=== PATIENT | female | born 1990 | race Caucasian/White ===

== ENCOUNTER 2016-07-25 11:48 | Inpatient (IN) | payer OTHER ==
[2016-07-25 12:52] VITALS: BMI 23.3
--- NOTE | 2016-07-25 13:55 | HP ---
COWS - Scale Resting Pulse: 2= [place] 101-120 Sweatin= Chills/Flushing Restless Observation: 1= Difficult to Sit Still Pupil Size: 0= Normal to Room Light Bone or Joint Aches: 2= Severe Diffuse Aches Runny Nose/ Eye Tearin= Runny Nose/Eyes GI Upset > 30mins: 2= Nausea/Diarrhea Tremor Observation: 2= Slight Tremor Visible Yawning Observation: 2= >3x During Session Anxiety or Irritability: 2=Irritable/Anxious Goose Flesh Skin: 0=Smooth Skin COWS Score: 16 Admission ROS S - HPI Chief Complaint: "My life is unmanageable and I am tired of being a slave to this." Pt is here to Detox from Heroin. Allergies/Adverse Reactions: Allergies Allergy/AdvReac Type Severity Reaction Status Date / Time No Known Allergies Allergy Verified 07/25/16 13:04 History of Present Illness: Pt. is 25 YO female here to Detox from Heroin. Pt. has been to [facility] for Rehab in the past. Exam Limitations: No Limitations - Ebola screening Have you traveled outside of the country in the last 21 days: No Have you had contact with anyone from an Ebola affected area: No Have you been sick,other than usual withdrawal symptoms: No Do you have a fever: No - Review of Systems Constitutional: Chills, Diaphoresis, Fever, Loss of Appetite, Malaise, Night Sweats, Changes in sleep EENT: reports: Nose Congestion, Sinus Pressure Respiratory: reports: Shortness of Breath (Only when Detoxing.) Cardiac: reports: No Symptoms Reported GI: reports: Constipated, Nausea, Poor Appetite, Indigestion : reports: No Symptoms Reported Musculoskeletal: reports: Back Pain, Muscle Pain, Neck Pain Integumentary: reports: No Symptoms Reported Neuro: reports: Tremors Endocrine: reports: No Symptoms Reported Hematology: reports: Easy Bruising Psychiatric: reports: Judgement Intact, Mood/Affect Appropiate, Orientated x3, Anxious, Depressed Other Systems: Reviewed and Negative Patient History - Patient Medical History Hx Anemia: No Hx Asthma: No Hx Chronic Obstructive Pulmonary Disease (COPD): No Hx Cancer: No Hx Cardiac Disorders: Yes (VSD repair at age 4.) Hx Congestive Heart Failure: No Hx Hypertension: No Hx Hypercholesterolemia: No Hx Pacemaker: No HX Cerebrovascular Accident: No Hx Seizures: No Hx Dementia: No Hx Diabetes: Yes (NIDDM) Hx Gastrointestinal Disorders: No Hx Liver Disease: No Hx Genitourinary Disorders: No Hx Sexually Transmitted Disorders: No Hx Renal Disease (ESRD): No Hx Thyroid Disease: No Hx Human Immunodeficiency Virus (HIV): No (Last Tested: 2015: NEGATIVE.) Hx Hepatitis C: No (NEGATIVE HX.) Hx Depression: Yes (Takes med.) Hx Suicide Attempt: No (PATIENT DENIES CURRENT SI / HI.) Hx Bipolar Disorder: No Hx Schizophrenia: No - Patient Surgical History Past Surgical History: Yes Hx Neurologic Surgery: No Hx Cataract Extraction: No Hx Cardiac Surgery: Yes (REPAIR OF VSD AT AGE 4 YRS.) Hx Lung Surgery: No Hx Breast Surgery: No Hx Breast Biopsy: No Hx Abdominal Surgery: No Hx Appendectomy: No Hx Cholecystectomy: No Hx Genitourinary Surgery: No Hx Section: No Hx Orthopedic Surgery: No Hx Hysterectomy: No Anesthesia Reaction: No - PPD History Previous Implant?: Yes Documented Results: Negative w/o proof Implanted On Prior [facility] Admission?: Yes Date: 03/08/14 Results: 0 mm PPD to be Administered?: Yes - Reproductive History Patient is a Female of Child Bearing Age (11 -55 yrs old): Yes Last Menstrual Period: 07/24/16 Patient : No - Smoking Cessation Smoking history: Current every day smoker Have you smoked in the past 12 months: Yes Aproximately how many cigarettes per day: 10 Cigars Per Day: 0 Hx Chewing Tobacco Use: No Initiated information on smoking cessation: Yes 'Breaking Loose' booklet given: 07/25/16 (GIVEN ON UNIT.) - Substance & Tx. History Hx Alcohol Use: No Hx Substance Use: Yes Substance Use Type: Heroin Hx Substance Use Treatment: Yes (Rehab at [facility] and elsewhere in past.) - Substances Abused Heroin Route: Injection Frequency: Daily Amount used: 10-20 bags Age of first use: 19 Date of Last Use: 07/24/16 Family Disease History - Family Disease History Family Disease History: Heart Disease: Grandparent (Colon Ca; By-Pass Surgery.) , CA: Grandparent Admission Physical Exam BHS - Vital Signs Vital Signs: Vital Signs - 24 hr 07/25/16 12:48 Temperature 97.2 F L Pulse Rate 101 H Respiratory 18 Rate Blood Pressure 119/67 - Physical General Appearance: Yes: No Apparent Distress, Nourished, Appropriately Dressed , Tremorous HEENTM: Yes: Hearing grossly Normal, Normocephalic, Normal Voice, MARY, Pharynx Normal Respiratory: Yes: Chest Non-Tender, Lungs Clear, No Respiratory Distress Neck: Yes: No masses,lesions,Nodules, Supple, Trachea in good position Breast: Yes: Breast Exam Deferred Cardiology: Yes: Regular Rhythm, Regular Rate, S1, S2 Abdominal: Yes: Normal Bowel Sounds, Non Tender, Flat, Soft Genitourinary: Yes: Within Normal Limits Back: Yes: Normal Inspection Musculoskeletal: Yes: full range of Motion, Gait Steady Extremities: Yes: Normal Range of Motion, Non-Tender, Tremors Neurological: Yes: Fully Oriented, Alert, Normal Mood/Affect, Normal Response Integumentary: Yes: Normal Color, Warm, Track Cole (Dorsum of Bilateral hands. Redness and swelling noted at site on dorsum of Right hand. Pt. reports discomfort at site.) Lymphatic: Yes: Within Normal Limits - Diagnostic (1) Opioid dependence with withdrawal Current Visit: Yes Status: Acute (2) Nicotine dependence Current Visit: Yes Status: Chronic Qualifiers: Nicotine product type: cigarettes Substance use status: uncomplicated Qualified Code(s): F17.210 - Nicotine dependence, cigarettes, uncomplicated (3) Tqh-prrvirf-ucsrbkxwk diabetes mellitus without complications Current Visit: Yes Status: Chronic Qualifiers: Diabetes mellitus in classroom tutor insulin use: without in classroom tutor use Qualified Code(s): E11.9 - Type 2 diabetes mellitus without complications (4) Abscess of right hand Current Visit: Yes Status: Acute Cleared for Admission [facility] - Detox or Rehab [facility] Level of Care: Medically Managed Detox Regimen/Protocol: Methadone [facility] Breath Alcohol Content Breath Alcohol Content: 0 Urine Pregancy Test - Result Urine Test Results: Negative- NO Line Present Urine Drug Screen - Results Drug Screen Negative: No Urine Drug Screen Results: OPI-Opiates, OXY-Oxycodone
[2016-07-25] MEDS ORDERED: LOPERAMIDE HCL 2 MG CAPSULE PO PRN (14:34)
[2016-07-25] MEDS ORDERED: MAGNESIUM CITRATE 300 ML BOTTLE PO PRN (14:34)
[2016-07-25] MEDS ORDERED: P-EPHED 60MG/TRIPROLIDI 2.5MG TABLET PO PRN (14:34)
[2016-07-25] MEDS ORDERED: MAG HYDROX/AL HYDROX/SIMETH 30 ML UNIT-DOSE CUP PO PRN (14:34)
[2016-07-25] MEDS ORDERED: NICOTINE POLACRILEX 2 MG GUM BUC PRN (14:34)
[2016-07-25] MEDS ORDERED: hydrOXYzine PAMOATE 50 MG CAPSULE (FP) PO PRN (14:34)
[2016-07-25] MEDS ORDERED: guaiFENesin/D-METHORPHAN HB 10 ML UNIT-DOSE CUPS PO PRN (14:34)
[2016-07-25] MEDS ORDERED: METHADONE HCL 10 MG TABLET (FOR DETOX USE ONLY) PO ONE ×2 (14:34→23:00)
[2016-07-25] MEDS ORDERED: MAGNESIUM HYDROX 2400MG/30ML ORAL SUSPENSION 30 ML CUP PO PRN (14:34)
[2016-07-25] MEDS ORDERED: ACETAMINOPHEN 325 MG TABLET (FP) PO PRN (14:34)
[2016-07-25] MEDS ORDERED: IBUPROFEN 400 MG TABLET (FP) PO PRN (14:34)
[2016-07-25] MEDS ORDERED: MENTHOL/PHENOL 1 EACH UD MM PRN (14:34)
[2016-07-25] MEDS: NICOTINE 21 MG/24 HOURS TOPICAL PATCH TD SCH (15:08)
[2016-07-25] MEDS: diazePAM 5 MG TABLET PO PRN ×2 (15:09→22:33)
[2016-07-25 17:46] LABS: URINE APPEARANCE CLEAR; URINE BILIRUBIN NEGATIVE (NEGATIVE); URINE BLOOD NEGATIVE (NEGATIVE); URINE COLOR YELLOW; URINE GLUCOSE (UA) NEGATIVE (NEGATIVE); URINE KETONE NEGATIVE (NEGATIVE); URINE LEUK ESTERASE NEGATIVE (NEGATIVE); URINE NITRITE NEGATIVE (NEGATIVE); URINE PROTEIN NEGATIVE (NEGATIVE); URINE UROBILINOGEN NEGATIVE E.U./dl (0.2-1.0)
--- NOTE | 2016-07-25 18:09 | EKG ---
Test Reason : Blood Pressure : / mmHG Vent. Rate : 096 BPM Atrial Rate : 096 BPM P-R Int : 186 ms QRS Dur : 124 ms QT Int : 388 ms P-R-T Axes : 051 -70 079 degrees QTc Int : 490 ms NORMAL SINUS RHYTHM LEFT ATRIAL ENLARGEMENT LEFT AXIS DEVIATION RIGHT BUNDLE BRANCH BLOCK MARKED ST ABNORMALITY, POSSIBLE LATERAL SUBENDOCARDIAL INJURY ABNORMAL ECG WHEN COMPARED WITH ECG OF 25-JUL-2016 14:53, FUSION COMPLEXES ARE NO LONGER PRESENT PREMATURE VENTRICULAR COMPLEXES ARE NO LONGER PRESENT T WAVE INVERSION MORE EVIDENT IN LATERAL LEADS Confirmed by OLLIE MONTILLA MD ([id number]) on 07/25/2016 6:09:04 PM Referred By: Confirmed By:OLLIE MONTILLA MD
[2016-07-25] MEDS: BACITRACIN 30 GM TUBE TOPICAL OINTMENT TP SCH (22:32)
[2016-07-25] MEDS: diphenhydrAMINE HCL 50 MG CAPSULE PO PRN (22:33)
[2016-07-25] MEDS: SULFAMETHOXAZOLE/TRIMETHOPRIM 800MG/160MG D.S. TABLET PO SCH (22:33)
[2016-07-25] MEDS: THIAMINE HCL 100 MG TABLET (FP) PO SCH (22:41)
[2016-07-26] MEDS: diazePAM 5 MG TABLET PO PRN ×3 (06:13→22:18)
--- NOTE | 2016-07-26 07:46 | CONSULT ---
[facility] Psychiatric Consult - Data Date of interview: 07/26/16 Admission source: [facility] Identifying data: This is 25 years old femalewith no psychiatric hospitalization history iontoxicated with: Depression and Anxiety Substance Abuse History: - Smoking Cessation. Smoking history: Current every day smoker. Have you smoked in the past 12 months: Yes. Aproximately how many cigarettes per day: 10. Cigars Per Day: 0. Hx Chewing Tobacco Use: No. Initiated information on smoking cessation: Yes. 'Breaking Loose' booklet given : 07/25/16 (GIVEN ON UNIT.). - Substance & Tx. History. Hx Alcohol Use: No. Hx Substance Use: Yes. Substance Use Type: Heroin. Hx Substance Use Treatment : Yes (Rehab at [facility] and elsewhere in past.). - Substances Abused. Heroin. Route: Injection. Frequency: Daily. Amount used: 10-20 bags. Age of first use: 19. Date of Last Use: 07/24/16 Medical History: DM-2, Hypercholesterolemia history Psychiatric History: Patient reports history of depression and anxiety, reports historty of pesonality disorder, reports tyaking prior to admission: Effexor XR 150MG POQD, 75MG POQD Physical/Sexual Abuse/Trauma History: Denies Additional Comment: Effexor XR 150MG POQD, 75MG POQD Mental Status Exam - Mental Status Exam Alert and Oriented to: Person Cognitive Function: Fair Patient Appearance: Unkempt Mood: Sad Affect: Flat Patient Behavior: Sedated Speech Pattern: Delayed Voice Loudness: Mildly Soft/Quiet Thought Process: Circumstantial Thought Disorder: Being Controlled Hallucinations: Denies Suicidal Ideation: Denies Homicidal Ideation: Denies Insight/Judgement: Fair Sleep: Difficulty falling asleep Appetite: Weight loss Muscle strength/Tone: Mild Hypotonicity Gait/Station: Shuffling Additional Comments: Effexor XR 150MG POQD, 75MG POQD Psychiatric Findings - Problem List ([place] 1, 2,3) (1) Opioid dependence with withdrawal Current Visit: Yes Status: Acute (2) Nicotine dependence Current Visit: Yes Status: Chronic Qualifiers: Nicotine product type: cigarettes Substance use status: uncomplicated Qualified Code(s): F17.210 - Nicotine dependence, cigarettes, uncomplicated (3) Cannabis abuse Current Visit: No Status: Acute (4) Heroin dependence Current Visit: No Status: Acute (5) Personality disorder Current Visit: No Status: Acute (6) Substance induced mood disorder Current Visit: No Status: Acute (7) Drug-induced mood disorder Current Visit: Yes Status: Acute - Initial Treatment Plan Initial Treatment Plan: Effexor XR 150MG POQD, 75MG POQD
[2016-07-26] MEDS ORDERED: VENLAFAXINE HCL 150 MG E.R. CAPSULE PO SCH (10:00)
[2016-07-26] MEDS ORDERED: METHADONE HCL 10 MG TABLET (FOR DETOX USE ONLY) PO ONE (10:00)
[2016-07-26 10:07] LABS: MCH 28.8 pg (25.7-33.7); MCHC 33.5 g/dl (32.0-36.0); MEAN PLT VOLUME 9.8 fl (7.5-11.1); PLATELET COUNT 161 K/MM3 (134-434); RDW 15.7 % (11.6-15.6); WHITE BLOOD COUNT 5.9 K/mm3 (4.0-10.0)
[2016-07-26] MEDS: BACITRACIN 30 GM TUBE TOPICAL OINTMENT TP SCH ×2 (10:10→22:18)
[2016-07-26] MEDS: glipiZIDE 10 MG TABLET (FP) PO SCH (10:10)
[2016-07-26] MEDS: SULFAMETHOXAZOLE/TRIMETHOPRIM 800MG/160MG D.S. TABLET PO SCH ×2 (10:10→22:18)
[2016-07-26] MEDS: PRENATAL VITAMINS W/ FOLIC ACID TABLET (FP) PO SCH (10:10)
[2016-07-26] MEDS: VENLAFAXINE HCL 75 MG E.R. CAPSULES (FP) PO SCH (10:10)
[2016-07-26] MEDS: NICOTINE 21 MG/24 HOURS TOPICAL PATCH TD SCH (10:12)
[2016-07-26 10:22] LABS: ALBUMIN 3.5 g/dl (3.4-5.0); ALK PHOS 83 U/L (45-117); ANION GAP 5 (8-16); BILIRUBIN,TOTAL 0.3 mg/dL (0.2-1.0); CALCIUM 8.7 mg/dL (8.5-10.1); CO2 33 mmol/L (21-32); CREATININE 0.7 mg/dL (0.55-1.02); GLUCOSE,RANDOM 80 mg/dL (74-106); SGOT/AST 20 U/L (15-37); SGPT/ALT 21 U/L (12-78); TOT PROT 6.9 g/dl (6.4-8.2)
--- NOTE | 2016-07-26 11:02 | PN ---
BHS COWS - Scale Resting Pulse: 2= [place] 101-120 Sweatin=Flushed/Facial Moisture Restless Observation: 1= Difficult to Sit Still Pupil Size: 0= Normal to Room Light Bone or Joint Aches: 2= Severe Diffuse Aches Runny Nose/ Eye Tearin= Nasal Congestion GI Upset > 30mins: 0= None Tremor Observation of Outstretched Hands: 2= Slight Tremor Visible Yawning Observation: 2= >3x During Session Anxiety or Irritability: 1=Feels Anxious/Irritable Goose Flesh Skin: 3=Piloerection COWS Score: 16 BHS Progress Note (SOAP) Subjective: agitation sweats chills sweats interrupted sleep Objective: 07/26/16 11:01 Vital Signs Temperature 98.1 F 07/26/16 10:23 Pulse Rate 109 H 07/26/16 10:23 Respiratory Rate 18 07/26/16 10:23 Blood Pressure 111/61 07/26/16 10:23 O2 Sat by Pulse Oximetry (%) Laboratory Tests 07/25/16 07/25/16 07/25/16 13:18 13:24 16:35 WBC RBC Hgb Hct MCV MCHC RDW Plt Count MPV Sodium Potassium Chloride Carbon Dioxide Anion Gap BUN Creatinine Creat Clearance w eGFR POC Glucometer 153 93 Random Glucose Calcium Total Bilirubin AST ALT Alkaline Phosphatase Total Protein Albumin Urine Color Yellow Urine Appearance Clear Urine pH 5.0 Ur Specific [place] 1.017 Urine Protein Negative Urine Glucose (UA) Negative Urine Ketones Negative Urine Blood Negative Urine Nitrite Negative Urine Bilirubin Negative Urine Urobilinogen Negative Ur Leukocyte Esterase Negative RPR Titer 07/26/16 07/26/16 07/26/16 07:00 07:00 07:00 WBC 5.9 RBC 4.42 Hgb 12.7 D Hct 38.0 D MCV 86.0 MCHC 33.5 RDW 15.7 H Plt Count 161 MPV 9.8 D Sodium 139 Potassium 4.1 Chloride 101 Carbon Dioxide 33 H D Anion Gap 5 L BUN 6 L D Creatinine 0.7 D Creat Clearance w eGFR > 60 POC Glucometer Random Glucose 80 Calcium 8.7 Total Bilirubin 0.3 D AST 20 ALT 21 D Alkaline Phosphatase 83 D Total Protein 6.9 Albumin 3.5 Urine Color Urine Appearance Urine pH Ur Specific [place] Urine Protein Urine Glucose (UA) Urine Ketones Urine Blood Urine Nitrite Urine Bilirubin Urine Urobilinogen Ur Leukocyte Esterase RPR Titer Nonreactive 07/26/16 07:09 WBC RBC Hgb Hct MCV MCHC RDW Plt Count MPV Sodium Potassium Chloride Carbon Dioxide Anion Gap BUN Creatinine Creat Clearance w eGFR POC Glucometer 87 Random Glucose Calcium Total Bilirubin AST ALT Alkaline Phosphatase Total Protein Albumin Urine Color Urine Appearance Urine pH Ur Specific [place] Urine Protein Urine Glucose (UA) Urine Ketones Urine Blood Urine Nitrite Urine Bilirubin Urine Urobilinogen Ur Leukocyte Esterase RPR Titer awake/alert lying in bed no acute distress Assessment: 07/26/16 11:01 withdrawal sx Plan: continue detox
[2016-07-26] MEDS: THIAMINE HCL 100 MG TABLET (FP) PO SCH (22:17)
[2016-07-26] MEDS: diphenhydrAMINE HCL 50 MG CAPSULE PO PRN (22:18)
[2016-07-27] MEDS: glipiZIDE 10 MG TABLET (FP) PO SCH (07:44)
--- NOTE | 2016-07-27 09:52 | PN ---
BHS COWS - Scale Resting Pulse: 2= [place] 101-120 Sweatin=Flushed/Facial Moisture Restless Observation: 1= Difficult to Sit Still Pupil Size: 1= Pupils >than Normal Bone or Joint Aches: 2= Severe Diffuse Aches Runny Nose/ Eye Tearin= Nasal Congestion GI Upset > 30mins: 1= Stomach Cramp Tremor Observation of Outstretched Hands: 1= Tremor [place], Not Seen Yawning Observation: 0= None Anxiety or Irritability: 2=Irritable/Anxious Goose Flesh Skin: 0=Smooth Skin COWS Score: 13 BHS Progress Note (SOAP) Subjective: interrupted sleep, sweats, lbp Objective: 07/27/16 09:51 Vital Signs Temperature 98 F 07/27/16 06:34 Pulse Rate 91 H 07/27/16 06:34 Respiratory Rate 20 07/27/16 06:34 Blood Pressure 98/65 07/27/16 06:34 O2 Sat by Pulse Oximetry (%) Laboratory Tests 07/25/16 07/25/16 07/25/16 13:18 13:24 16:35 WBC RBC Hgb Hct MCV MCHC RDW Plt Count MPV Sodium Potassium Chloride Carbon Dioxide Anion Gap BUN Creatinine Creat Clearance w eGFR POC Glucometer 153 93 Random Glucose Calcium Total Bilirubin AST ALT Alkaline Phosphatase Total Protein Albumin Urine Color Yellow Urine Appearance Clear Urine pH 5.0 Ur Specific [place] 1.017 Urine Protein Negative Urine Glucose (UA) Negative Urine Ketones Negative Urine Blood Negative Urine Nitrite Negative Urine Bilirubin Negative Urine Urobilinogen Negative Ur Leukocyte Esterase Negative RPR Titer 07/26/16 07/26/16 07/26/16 07:00 07:00 07:00 WBC 5.9 RBC 4.42 Hgb 12.7 D Hct 38.0 D MCV 86.0 MCHC 33.5 RDW 15.7 H Plt Count 161 MPV 9.8 D Sodium 139 Potassium 4.1 Chloride 101 Carbon Dioxide 33 H D Anion Gap 5 L BUN 6 L D Creatinine 0.7 D Creat Clearance w eGFR > 60 POC Glucometer Random Glucose 80 Calcium 8.7 Total Bilirubin 0.3 D AST 20 ALT 21 D Alkaline Phosphatase 83 D Total Protein 6.9 Albumin 3.5 Urine Color Urine Appearance Urine pH Ur Specific [place] Urine Protein Urine Glucose (UA) Urine Ketones Urine Blood Urine Nitrite Urine Bilirubin Urine Urobilinogen Ur Leukocyte Esterase RPR Titer Nonreactive 07/26/16 07/26/16 07/27/16 07:09 16:29 05:32 WBC RBC Hgb Hct MCV MCHC RDW Plt Count MPV Sodium Potassium Chloride Carbon Dioxide Anion Gap BUN Creatinine Creat Clearance w eGFR POC Glucometer 87 70 89 Random Glucose Calcium Total Bilirubin AST ALT Alkaline Phosphatase Total Protein Albumin Urine Color Urine Appearance Urine pH Ur Specific [place] Urine Protein Urine Glucose (UA) Urine Ketones Urine Blood Urine Nitrite Urine Bilirubin Urine Urobilinogen Ur Leukocyte Esterase RPR Titer 07/27/16 11:20 pt aox3 in nad ambulating Assessment: 07/27/16 09:52 withdrawl sx;s 07/27/16 11:20 lbp Plan: cont. detox increase fluids motrin prn flexeril 10mgtid/prn
[2016-07-27] MEDS ORDERED: METHADONE HCL 5 MG TABLET (FOR DETOX USE ONLY) PO ONE (10:00)
[2016-07-27] MEDS: diazePAM 5 MG TABLET PO PRN ×2 (10:21→22:14)
[2016-07-27] MEDS: PRENATAL VITAMINS W/ FOLIC ACID TABLET (FP) PO SCH (10:21)
[2016-07-27] MEDS: SULFAMETHOXAZOLE/TRIMETHOPRIM 800MG/160MG D.S. TABLET PO SCH ×2 (10:21→22:14)
[2016-07-27] MEDS: NICOTINE 21 MG/24 HOURS TOPICAL PATCH TD SCH (10:21)
[2016-07-27] MEDS: VENLAFAXINE HCL 75 MG E.R. CAPSULES (FP) PO SCH (10:22)
[2016-07-27] MEDS: BACITRACIN 30 GM TUBE TOPICAL OINTMENT TP SCH ×2 (10:23→22:50)
[2016-07-27] MEDS: CYCLOBENZAPRINE HCL 10 MG TABLET (FP) PO PRN ×2 (11:44→22:14)
[2016-07-27] MEDS: THIAMINE HCL 100 MG TABLET (FP) PO SCH (22:14)
[2016-07-28] MEDS: diazePAM 5 MG TABLET PO PRN (06:07)
[2016-07-28] MEDS: glipiZIDE 10 MG TABLET (FP) PO SCH (06:49)
[2016-07-28] MEDS ORDERED: METHADONE HCL 5 MG TABLET (FOR DETOX USE ONLY) PO ONE (10:00)
[2016-07-28] MEDS: VENLAFAXINE HCL 75 MG E.R. CAPSULES (FP) PO SCH (10:07)
[2016-07-28] MEDS: PRENATAL VITAMINS W/ FOLIC ACID TABLET (FP) PO SCH (10:07)
[2016-07-28] MEDS: SULFAMETHOXAZOLE/TRIMETHOPRIM 800MG/160MG D.S. TABLET PO SCH ×2 (10:07→22:26)
[2016-07-28] MEDS: NICOTINE 21 MG/24 HOURS TOPICAL PATCH TD SCH (10:08)
[2016-07-28] MEDS: BACITRACIN 30 GM TUBE TOPICAL OINTMENT TP SCH ×2 (10:08→22:27)
--- NOTE | 2016-07-28 11:10 | PN ---
BHS Progress Note (SOAP) Subjective: back pain sweats chills interrupted sleep Objective: 07/28/16 11:08 Vital Signs Temperature 98.4 F 07/28/16 10:20 Pulse Rate 101 H 07/28/16 10:20 Respiratory Rate 16 07/28/16 10:20 Blood Pressure 111/57 07/28/16 10:20 O2 Sat by Pulse Oximetry (%) awake/alert ambulating no acute distress Assessment: 07/28/16 11:09 withdrawal sx Plan: continue detox increase fluids lidocaine patch
[2016-07-28] MEDS: LIDOCAINE 5% TOPICAL PATCH TP SCH (11:33)
[2016-07-28] MEDS: CYCLOBENZAPRINE HCL 10 MG TABLET (FP) PO PRN (22:26)
[2016-07-28] MEDS: THIAMINE HCL 100 MG TABLET (FP) PO SCH (22:26)
[2016-07-28] MEDS: diphenhydrAMINE HCL 50 MG CAPSULE PO PRN (22:26)
[2016-07-29] MEDS: glipiZIDE 10 MG TABLET (FP) PO SCH (07:25)
[2016-07-29] MEDS ORDERED: METHADONE HCL 10 MG TABLET (FOR DETOX USE ONLY) PO ONE (10:00)
[2016-07-29] MEDS: VENLAFAXINE HCL 75 MG E.R. CAPSULES (FP) PO SCH (10:29)
[2016-07-29] MEDS: SULFAMETHOXAZOLE/TRIMETHOPRIM 800MG/160MG D.S. TABLET PO SCH ×2 (10:30→22:52)
[2016-07-29] MEDS: BACITRACIN 30 GM TUBE TOPICAL OINTMENT TP SCH ×2 (10:31→22:52)
[2016-07-29] MEDS: LIDOCAINE 5% TOPICAL PATCH TP SCH (11:10)
[2016-07-29] MEDS: NICOTINE 21 MG/24 HOURS TOPICAL PATCH TD SCH (11:11)
[2016-07-29] MEDS: PRENATAL VITAMINS W/ FOLIC ACID TABLET (FP) PO SCH (11:12)
--- NOTE | 2016-07-29 12:28 | PN ---
S Progress Note (SOAP) Subjective: Fatigue, Restless Legs (last night only). Objective: PT. A & O X 3. 07/29/16 12:26 Vital Signs Temperature 96.3 F L 07/29/16 09:53 Pulse Rate 96 H 07/29/16 09:53 Respiratory Rate 16 07/29/16 09:53 Blood Pressure 112/57 07/29/16 09:53 O2 Sat by Pulse Oximetry (%) Laboratory Last Values WBC 5.9 K/mm3 (4.0-10.0) 07/26/16 07:00 RBC 4.42 M/mm3 (3.60-5.2) 07/26/16 07:00 Hgb 12.7 GM/dL (10.7-15.3) D 07/26/16 07:00 Hct 38.0 % (32.4-45.2) D 07/26/16 07:00 MCV 86.0 fl (80-96) 07/26/16 07:00 MCHC 33.5 g/dl (32.0-36.0) 07/26/16 07:00 RDW 15.7 % (11.6-15.6) H 07/26/16 07:00 Plt Count 161 K/MM3 (134-434) 07/26/16 07:00 MPV 9.8 fl (7.5-11.1) D 07/26/16 07:00 Sodium 139 mmol/L (136-145) 07/26/16 07:00 Potassium 4.1 mmol/L (3.5-5.1) 07/26/16 07:00 Chloride 101 mmol/L (98-107) 07/26/16 07:00 Carbon Dioxide 33 mmol/L (21-32) H D 07/26/16 07:00 Anion Gap 5 (8-16) L 07/26/16 07:00 BUN 6 mg/dL (7-18) L D 07/26/16 07:00 Creatinine 0.7 mg/dL (0.55-1.02) D 07/26/16 07:00 Creat Clearance w eGFR > 60 (>60) 07/26/16 07:00 POC Glucometer 120 UNITS (()) 07/29/16 06:00 Random Glucose 80 mg/dL (74-106) 07/26/16 07:00 Calcium 8.7 mg/dL (8.5-10.1) 07/26/16 07:00 Total Bilirubin 0.3 mg/dL (0.2-1.0) D 07/26/16 07:00 AST 20 U/L (15-37) 07/26/16 07:00 ALT 21 U/L (12-78) D 07/26/16 07:00 Alkaline Phosphatase 83 U/L (45-117) D 07/26/16 07:00 Total Protein 6.9 g/dl (6.4-8.2) 07/26/16 07:00 Albumin 3.5 g/dl (3.4-5.0) 07/26/16 07:00 Urine Color Yellow 07/25/16 13:24 Urine Appearance Clear 07/25/16 13:24 Urine pH 5.0 (5.0-8.0) 07/25/16 13:24 Ur Specific [place] 1.017 (1.001-1.035) 07/25/16 13:24 Urine Protein Negative (NEGATIVE) 07/25/16 13:24 Urine Glucose (UA) Negative (NEGATIVE) 07/25/16 13:24 Urine Ketones Negative (NEGATIVE) 07/25/16 13:24 Urine Blood Negative (NEGATIVE) 07/25/16 13:24 Urine Nitrite Negative (NEGATIVE) 07/25/16 13:24 Urine Bilirubin Negative (NEGATIVE) 07/25/16 13:24 Urine Urobilinogen Negative E.U./dl (0.2-1.0) 07/25/16 13:24 Ur Leukocyte Esterase Negative (NEGATIVE) 07/25/16 13:24 RPR Titer Nonreactive (NONREACTIVE) 07/26/16 07:00 LABS NOTED. Assessment: 07/29/16 12:27 WITHDRAWAL SYMPTOMS. Plan: CONTINUE DETOX. ADVISED PT. TO FOLLOW-UP WITH YOUTH SERVICES LIBRARIAN / REHAB MEDICAL PROVIDER AFTER DISCHARGE FROM DETOX FOR GENERAL MEDICAL ASSESSMENT AND ABNORMAL LAB VALUES.
[2016-07-29] MEDS: THIAMINE HCL 100 MG TABLET (FP) PO SCH (22:52)
[2016-07-30] MEDS ORDERED: METHADONE HCL 5 MG TABLET (FOR DETOX USE ONLY) PO ONE (06:00)
[2016-07-30] MEDS: glipiZIDE 10 MG TABLET (FP) PO SCH (06:03)
--- NOTE | 2016-07-30 08:57 | DS ---
[facility] Detox Discharge Summary Admission Date: 07/25/16 Discharge Date: 07/30/16 - History Present History: Cannabis Dependence, Opioid Dependence - Physical Exam Results Vital Signs: Vital Signs Temperature 97.3 F L 07/30/16 06:00 Pulse Rate 85 07/30/16 06:00 Respiratory Rate 16 07/30/16 06:00 Blood Pressure 97/58 07/30/16 06:00 O2 Sat by Pulse Oximetry (%) - Treatment Hospital Course: Detox Protocol Followed, Detoxed Safely, Responded well, Discharged Condition Good, Rehab Referral Accepted - Medication Discharge Medications: Ambulatory Orders Glipizide [Glucotrol -] 10 mg PO DAILY 05/03/16 Venlafaxine HCl [Effexor -] 225 mg PO DAILY 07/22/16 Venlafaxine HCl ER [Effexor Xr -] 75 mg PO DAILY #30 cap.er.24h 07/26/16 Venlafaxine HCl ER [Effexor Xr -] 150 mg PO DAILY #30 cap.er.24h 07/26/16 - Diagnosis (1) Abscess of right hand Current Visit: Yes Status: Acute (2) Drug-induced mood disorder Current Visit: Yes Status: Acute (3) Opioid dependence with withdrawal Current Visit: Yes Status: Chronic (4) Nicotine dependence Current Visit: Yes Status: Chronic Qualifiers: Nicotine product type: cigarettes Substance use status: uncomplicated Qualified Code(s): F17.210 - Nicotine dependence, cigarettes, uncomplicated (5) Dco-pbfwthk-cihhdhxfs diabetes mellitus without complications Current Visit: Yes Status: Chronic Qualifiers: Diabetes mellitus group home insulin use: without terminal clerk use Qualified Code(s): E11.9 - Type 2 diabetes mellitus without complications (6) Anxious depression Current Visit: No Status: Acute (7) Cannabis abuse Current Visit: No Status: Acute (8) Heroin dependence Current Visit: No Status: Acute (9) Personality disorder Current Visit: No Status: Acute (10) Substance induced mood disorder Current Visit: No Status: Acute (11) Type II diabetes mellitus Current Visit: Yes Status: Chronic Qualifiers: Diabetes mellitus complication status: without complication Diabetes mellitus group home insulin use: with terminal clerk use Qualified Code(s): E11.9 - Type 2 diabetes mellitus without complications; Z79.4 - nursing home ( current) use of insulin - AMA Did Patient Leave Against Medical Advice: No
[2016-07-30 10:16] VITALS: BP 104/59; PULSE 99; TEMP 96.1
[2016-07-30] MEDS: PRENATAL VITAMINS W/ FOLIC ACID TABLET (FP) PO SCH (10:31)
[2016-07-30] MEDS: SULFAMETHOXAZOLE/TRIMETHOPRIM 800MG/160MG D.S. TABLET PO SCH (10:31)
[2016-07-30] MEDS: VENLAFAXINE HCL 75 MG E.R. CAPSULES (FP) PO SCH (10:31)
[2016-07-30] MEDS: BACITRACIN 30 GM TUBE TOPICAL OINTMENT TP SCH (10:33)
[2016-07-30] MEDS: LIDOCAINE 5% TOPICAL PATCH TP SCH (10:33)
[2016-07-30] MEDS: NICOTINE 21 MG/24 HOURS TOPICAL PATCH TD SCH (10:33)
== END 2016-07-30 11:20 | disposition home or self-care (01) | DRG 773 ==
LOC: YASAS 11:48 → Y6N 13:29
PROVIDERS: ADMIT Internal Medicine; ATTEND Internal Medicine
PROC: HZ2ZZZZ Detoxification Services for Substance Abuse Treatment (ICD-10-PCS; principal; 2016-07-30)
DX: F11.23 Opioid dependence with withdrawal (principal); F17.210 Nicotine dependence, cigarettes, uncomplicated; E11.9 Type 2 diabetes mellitus without complications; Z79.84 Long term (current) use of oral hypoglycemic drugs; L02.511 Cutaneous abscess of right hand
CPT/HCPCS: 36415; 80053; 81003; 85027; 86593; 93005; 93010

== ENCOUNTER 2016-10-04 12:54 | Inpatient (IN) | payer OTHER ==
[2016-10-04 13:32] VITALS: BMI 24.7
--- NOTE | 2016-10-04 15:09 | HP ---
COWS - Scale Resting Pulse: 2= [place] 101-120 Sweatin= Chills/Flushing Restless Observation: 3= Extraneous Movement Pupil Size: 2= Moderately Dilated Bone or Joint Aches: 4=Acute Joint/Muscle Pain Runny Nose/ Eye Tearin= None GI Upset > 30mins: 0= None Tremor Observation: 1= Tremor [place], Not Seen Yawning Observation: 1= 1-2x During Session Anxiety or Irritability: 1=Feels Anxious/Irritable Goose Flesh Skin: 0=Smooth Skin COWS Score: 15 Admission ROS BHS - HPI Chief Complaint: DETOX TX FOR HEROIN DEPENDENCE Allergies/Adverse Reactions: Allergies Allergy/AdvReac Type Severity Reaction Status Date / Time No Known Allergies Allergy Verified 10/04/16 13:32 History of Present Illness: 26 Y/O [facility]/FEMALE WITH A HX OF HEROIN DEPENDENCE SEEKING DETOX TX Exam Limitations: No Limitations - Ebola screening Have you traveled outside of the country in the last 21 days: No Have you had contact with anyone from an Ebola affected area: No Have you been sick,other than usual withdrawal symptoms: No Do you have a fever: No - Review of Systems Constitutional: Chills, Night Sweats, Changes in sleep EENT: reports: Tearing, Nose Congestion Respiratory: reports: No Symptoms reported Cardiac: reports: No Symptoms Reported GI: reports: Constipated, Diarrhea, Nausea, Vomiting : reports: Dysuria (DUE TO DRUG USE) Musculoskeletal: reports: Back Pain, Joint Pain, Muscle Pain Integumentary: reports: Bruising (BOTH WRIST AREAS) Neuro: reports: Headache, Tremors Endocrine: reports: No Symptoms Reported Hematology: reports: Anemia Psychiatric: reports: Orientated x3, Anxious, Depressed Other Systems: Reviewed and Negative Patient History - Patient Medical History Hx Anemia: No Hx Asthma: No Hx Chronic Obstructive Pulmonary Disease (COPD): No Hx Cancer: No Hx Cardiac Disorders: Yes (VSD repair at age 4) Hx Congestive Heart Failure: No Hx Hypertension: No Hx Hypercholesterolemia: No Hx Pacemaker: No HX Cerebrovascular Accident: No Hx Seizures: No Hx Dementia: No Hx Diabetes: Yes (ON GLYPIZIDE) Hx Gastrointestinal Disorders: No Hx Liver Disease: No Hx Genitourinary Disorders: No Hx Sexually Transmitted Disorders: No Hx Renal Disease (ESRD): No Hx Thyroid Disease: No Hx Human Immunodeficiency Virus (HIV): No (Last Tested: 2015: NEGATIVE.) Hx Hepatitis C: No (NEGATIVE HX.) Hx Depression: Yes (ON EFFEXOR) Hx Suicide Attempt: No (DENIES) Hx Bipolar Disorder: No Hx Schizophrenia: No - Patient Surgical History Past Surgical History: Yes Hx Neurologic Surgery: No Hx Cataract Extraction: No Hx Cardiac Surgery: No (REPAIR OF VSD AT AGE 4 YRS.) Hx Lung Surgery: No Hx Breast Surgery: No Hx Breast Biopsy: No Hx Abdominal Surgery: No Hx Appendectomy: No Hx Cholecystectomy: No Hx Genitourinary Surgery: No Hx Section: No Hx Orthopedic Surgery: No Hx Hysterectomy: No Anesthesia Reaction: No - PPD History Previous Implant?: Yes Documented Results: Negative w/proof Implanted On Prior [facility] Admission?: Yes Date: 07/27/16 Results: 0 mm PPD to be Administered?: No - Reproductive History Patient is a Female of Child Bearing Age (11 -55 yrs old): Yes Last Menstrual Period: 09/17/16 Patient : No - Smoking Cessation Smoking history: Current every day smoker Have you smoked in the past 12 months: Yes Aproximately how many cigarettes per day: 10 Cigars Per Day: 0 Hx Chewing Tobacco Use: No Initiated information on smoking cessation: Yes 'Breaking Loose' booklet given: 10/04/16 - Substance & Tx. History Hx Alcohol Use: No (DENIES) Hx Substance Use: Yes (HEROIN) Substance Use Type: Heroin Hx Substance Use Treatment: Yes ([facility]-DETOX) - Substances Abused Heroin Route: Injection Frequency: Daily Amount used: 5-10 bags Age of first use: 19 Date of Last Use: 10/04/16 Family Disease History - Family Disease History Family Disease History: Heart Disease: Grandparent (Colon Ca; By-Pass Surgery.) , Father, Mother, [place]: Grandparent Admission Physical Exam BHS - Vital Signs Vital Signs: Vital Signs - 24 hr 10/04/16 13:28 Temperature 97.9 F Pulse Rate 103 H Respiratory 18 Rate Blood Pressure 119/71 - Physical General Appearance: Yes: Moderate Distress, Irritable, Anxious HEENTM: Yes: EOMI, Normocephalic, MARY, Pharynx Normal Respiratory: Yes: Chest Non-Tender, Lungs Clear, Normal Breath Sounds, No Respiratory Distress Neck: Yes: Supple, Trachea in good position Breast: Yes: Breast Exam Deferred Cardiology: Yes: Regular Rhythm, S1, S2, Tachycardia Abdominal: Yes: Normal Bowel Sounds, Non Tender, Flat, Soft Genitourinary: Yes: Other (N/C) Back: Yes: Within Normal Limits Musculoskeletal: Yes: full range of Motion, Gait Steady Extremities: Yes: Normal Range of Motion, Non-Tender Neurological: Yes: chief unit forester II-XII NML intact, Fully Oriented, Alert Integumentary: Yes: Dry, Warm, Track Feng (IV TRACK FENG BOTH FOREARMS) Lymphatic: Yes: Within Normal Limits - Diagnostic (1) Nicotine dependence Current Visit: Yes Status: Acute Qualifiers: Nicotine product type: cigarettes Substance use status: in withdrawal Qualified Code(s): F17.213 - Nicotine dependence, cigarettes, with withdrawal (2) Opioid dependence with withdrawal Current Visit: Yes Status: Acute (3) Type II diabetes mellitus Current Visit: Yes Status: Chronic Qualifiers: Diabetes mellitus complication status: without complication Diabetes mellitus pathology teacher insulin use: with pathology teacher use Qualified Code(s): E11.9 - Type 2 diabetes mellitus without complications Cleared for Admission [facility] - Detox or Rehab [facility] Level of Care: Medically Managed Detox Regimen/Protocol: Methadone [facility] Breath Alcohol Content Breath Alcohol Content: 0 Urine Pregancy Test - Result Urine Test Results: Negative- NO Line Present Urine Drug Screen - Results Drug Screen Negative: No Urine Drug Screen Results: OPI-Opiates
[2016-10-04] MEDS ORDERED: MAGNESIUM CITRATE 300 ML BOTTLE PO PRN (15:19)
[2016-10-04] MEDS ORDERED: guaiFENesin/D-METHORPHAN HB 10 ML UNIT-DOSE CUPS PO PRN (15:19)
[2016-10-04] MEDS ORDERED: MAGNESIUM HYDROX 2400MG/30ML ORAL SUSPENSION 30 ML CUP PO PRN (15:19)
[2016-10-04] MEDS ORDERED: MENTHOL/PHENOL 1 EACH UD MM PRN (15:19)
[2016-10-04] MEDS ORDERED: IBUPROFEN 400 MG TABLET (FP) PO PRN (15:19)
[2016-10-04] MEDS ORDERED: ACETAMINOPHEN 325 MG TABLET (FP) PO PRN (15:19)
[2016-10-04] MEDS ORDERED: P-EPHED 60MG/TRIPROLIDI 2.5MG TABLET PO PRN (15:19)
[2016-10-04] MEDS ORDERED: LOPERAMIDE HCL 2 MG CAPSULE PO PRN (15:19)
[2016-10-04] MEDS ORDERED: MAG HYDROX/AL HYDROX/SIMETH 30 ML UNIT-DOSE CUP PO PRN (15:19)
[2016-10-04] MEDS ORDERED: hydrOXYzine PAMOATE 25 MG CAPSULE (FP) PO PRN (15:19)
[2016-10-04] MEDS ORDERED: METHADONE HCL 10 MG TABLET (FOR DETOX USE ONLY) PO ONE ×2 (15:24→23:00)
--- NOTE | 2016-10-04 17:54 | CONSULT ---
[facility] Psychiatric Consult - Data Date of interview: 10/04/16 Admission source: [facility] Identifying data: Readmission to [facility] for this 26 y/o female seeking detox treatment for heroin dependence.Patient is single without children ,domiciled,unemployed and supported by relatives. Substance Abuse History: - Smoking Cessation. Smoking history: Current every day smoker. Have you smoked in the past 12 months: Yes. Aproximately how many cigarettes per day: 10. Cigars Per Day: 0. Hx Chewing Tobacco Use: No. Initiated information on smoking cessation: Yes. 'Breaking Loose' booklet given : 10/04/16. - Substance & Tx. History. Hx Alcohol Use: No (DENIES). Hx Substance Use: Yes (HEROIN). Substance Use Type: Heroin. Hx Substance Use Treatment: Yes ([facility]-DETOX). - Substances Abused. Heroin. Route: Injection. Frequency: Daily. Amount used: 5-10 bags. Age of first use: 19. Date of Last Use: 10/04/16. Confirmed by patient. Medical History: Diabetes mellitus and history of heart surgery at age 4 ( correction of ventricular septal defect). Psychiatric History: No reported history of psychiatric hospitalizations.Diagnosed with MDD,Anxiety Disorder and PTSD.Patient is maintained on Effexor ER 225 mg/day.She endorses adequate adherence to medications.Reportedly took her dose this morning prior to coming to [facility].Ms Mackay gets her psychiatric outpatient services at the [facility] in [facility].She denies history of suicide attempts. Physical/Sexual Abuse/Trauma History: Patient declined to discuss this domain. Additional Comment: Urine Drug Screen Results: OPI-Opiates.Noted. Mental Status Exam - Mental Status Exam Alert and Oriented to: Time, Place, Person Cognitive Function: Good Patient Appearance: Well Groomed (left nostril is pierced and metallic ring going through) Mood: Hopeful, Euthymic Affect: Appropriate, Normal Range Patient Behavior: Fatigued, Appropriate, Cooperative Speech Pattern: Clear, Appropriate Voice Loudness: Normal Thought Process: Goal Oriented Thought Disorder: Not Present Hallucinations: Denies Suicidal Ideation: Denies Homicidal Ideation: Denies Insight/Judgement: Fair Sleep: Well (self-report) Appetite: Good Muscle strength/Tone: Normal Gait/Station: Normal Psychiatric Findings - Problem List ([place] 1, 2,3) (1) Opioid dependence with withdrawal Current Visit: Yes Status: Acute (2) Nicotine dependence Current Visit: Yes Status: Acute Qualifiers: Nicotine product type: cigarettes Substance use status: in withdrawal Qualified Code(s): F17.213 - Nicotine dependence, cigarettes, with withdrawal (3) Drug-induced mood disorder Current Visit: Yes Status: Acute (4) Post traumatic stress disorder (PTSD) Current Visit: Yes Status: Chronic Comment: Self-report. (5) Type II diabetes mellitus Current Visit: Yes Status: Chronic Qualifiers: Diabetes mellitus complication status: without complication Diabetes mellitus terminal operator insulin use: with terminal operator use Qualified Code(s): E11.9 - Type 2 diabetes mellitus without complications (6) [id number] diabetes mellitus without complications Current Visit: Yes Status: Chronic Qualifiers: Diabetes mellitus terminal operator insulin use: without snf use Qualified Code(s): E11.9 - Type 2 diabetes mellitus without complications - Initial Treatment Plan Initial Treatment Plan: Psychoeducation.Detoxification.Effexor XR 225 mg po daily.Ordered.Side effects/benefits discussed with the patient.She is in agreement with this plan of care.Observation.Dose is verified via review of pharmacy claims : noted filled scripts for venalafaxine ER 75 mg/150 mg on @ [facility].NO scripts necessary at discharge.
[2016-10-04] MEDS ORDERED: METHADONE HCL 10 MG TABLET (FOR DETOX USE ONLY) ONE (17:59)
[2016-10-04] MEDS: diazePAM 5 MG TABLET PO PRN (18:00)
[2016-10-04 21:25] LABS: URINE APPEARANCE CLEAR; URINE BILIRUBIN NEGATIVE (NEGATIVE); URINE BLOOD NEGATIVE (NEGATIVE); URINE COLOR YELLOW; URINE GLUCOSE (UA) 3+ (NEGATIVE); URINE KETONE NEGATIVE (NEGATIVE); URINE LEUK ESTERASE NEGATIVE (NEGATIVE); URINE NITRITE NEGATIVE (NEGATIVE); URINE PROTEIN NEGATIVE (NEGATIVE); URINE UROBILINOGEN NEGATIVE E.U./dl (0.2-1.0)
[2016-10-04] MEDS: THIAMINE HCL 100 MG TABLET (FP) PO SCH (22:34)
[2016-10-05] MEDS: glipiZIDE 10 MG TABLET (FP) PO SCH (06:57)
[2016-10-05 09:45] LABS: MCH 29.1 pg (25.7-33.7); MCHC 32.6 g/dl (32.0-36.0); MEAN CELL VOLUME 89.1 fl (80-96); MEAN PLT VOLUME 11.7 fl (7.5-11.1); PLATELET COUNT 175 K/MM3 (134-434); WHITE BLOOD COUNT 5.6 K/mm3 (4.0-10.0)
[2016-10-05] MEDS ORDERED: METHADONE HCL 10 MG TABLET (FOR DETOX USE ONLY) PO ONE (10:00)
[2016-10-05] MEDS ORDERED: VENLAFAXINE HCL 150 MG E.R. CAPSULE PO SCH (10:00)
[2016-10-05 10:12] LABS: ALK PHOS 110 U/L (45-117); ANION GAP 11 (8-16); BILIRUBIN,TOTAL 0.7 mg/dL (0.2-1.0); CALCIUM 9.2 mg/dL (8.5-10.1); CO2 30 mmol/L (21-32); COCKROFT - GAULT 115.6595; CREATININE 0.7 mg/dL (0.55-1.02); GLUCOSE,RANDOM 240 mg/dL (74-106); SGOT/AST 18 U/L (15-37); SGPT/ALT 23 U/L (12-78); TOT PROT 7.7 g/dl (6.4-8.2)
[2016-10-05] MEDS: PRENATAL VITAMINS W/ FOLIC ACID TABLET (FP) PO SCH (10:31)
[2016-10-05] MEDS: VENLAFAXINE HCL 75 MG E.R. CAPSULES (FP) PO SCH (10:32)
[2016-10-05] MEDS: diazePAM 5 MG TABLET PO PRN ×2 (10:35→22:24)
--- NOTE | 2016-10-05 10:59 | PN ---
BHS COWS - Scale Resting Pulse: 2= [place] 101-120 Sweatin= Chills/Flushing Restless Observation: 1= Difficult to Sit Still Pupil Size: 0= Normal to Room Light Bone or Joint Aches: 2= Severe Diffuse Aches Runny Nose/ Eye Tearin= Runny Nose/Eyes GI Upset > 30mins: 0= None Tremor Observation of Outstretched Hands: 2= Slight Tremor Visible Yawning Observation: 1= 1-2x During Session Anxiety or Irritability: 2=Irritable/Anxious Goose Flesh Skin: 0=Smooth Skin COWS Score: 13 BHS Progress Note (SOAP) Subjective: sweats mild shakes interrupted sleep irritable Objective: 10/05/16 11:01 Vital Signs Temperature 98.2 F 10/05/16 10:59 Pulse Rate 105 H 10/05/16 10:59 Respiratory Rate 18 10/05/16 10:59 Blood Pressure 115/73 10/05/16 10:59 O2 Sat by Pulse Oximetry (%) Laboratory Tests 10/04/16 10/04/16 10/05/16 13:50 18:00 06:00 WBC 5.6 RBC 4.64 Hgb 13.5 Hct 41.3 MCV 89.1 MCHC 32.6 RDW 14.0 D Plt Count 175 MPV 11.7 H D Sodium Potassium Chloride Carbon Dioxide Anion Gap BUN Creatinine Creat Clearance w eGFR POC Glucometer 235 Random Glucose Calcium Total Bilirubin AST ALT Alkaline Phosphatase Total Protein Albumin Urine Color Yellow Urine Appearance Clear Urine pH 5.0 Urine Protein Negative Urine Glucose (UA) 3+ H Urine Ketones Negative Urine Blood Negative Urine Nitrite Negative Urine Bilirubin Negative Urine Urobilinogen Negative Ur Leukocyte Esterase Negative 10/05/16 10/05/16 06:00 06:47 WBC RBC Hgb Hct MCV MCHC RDW Plt Count MPV Sodium 136 Potassium 4.4 Chloride 95 L Carbon Dioxide 30 Anion Gap 11 BUN 9 D Creatinine 0.7 Creat Clearance w eGFR > 60 POC Glucometer 210 Random Glucose 240 H D Calcium 9.2 Total Bilirubin 0.7 D AST 18 ALT 23 Alkaline Phosphatase 110 D Total Protein 7.7 Albumin 4.0 Urine Color Urine Appearance Urine pH Urine Protein Urine Glucose (UA) Urine Ketones Urine Blood Urine Nitrite Urine Bilirubin Urine Urobilinogen Ur Leukocyte Esterase awake/alert ambulating no acute distress Assessment: 10/05/16 11:02 withdrawal sx Plan: continue detox increase fluids
--- NOTE | 2016-10-05 11:20 | EKG ---
Test Reason : Blood Pressure : / mmHG Vent. Rate : 096 BPM Atrial Rate : 096 BPM P-R Int : 194 ms QRS Dur : 128 ms QT Int : 382 ms P-R-T Axes : 051 -68 072 degrees QTc Int : 482 ms NORMAL SINUS RHYTHM LEFT ATRIAL ENLARGEMENT LEFT AXIS DEVIATION RIGHT BUNDLE BRANCH BLOCK T WAVE ABNORMALITY, CONSIDER LATERAL ISCHEMIA ABNORMAL ECG WHEN COMPARED WITH ECG OF 25-JUL-2016 14:54, NO SIGNIFICANT CHANGE WAS FOUND CLINICAL CORRELATION IS RECOMMENDED Confirmed by BREANNA GUSMAN MD ([id number]) on 10/05/2016 11:20:28 AM Referred By: Confirmed By:BREANNA GUSMAN MD
[2016-10-05] MEDS: THIAMINE HCL 100 MG TABLET (FP) PO SCH (22:16)
[2016-10-06] MEDS: glipiZIDE 10 MG TABLET (FP) PO SCH (07:45)
[2016-10-06] MEDS ORDERED: METHADONE HCL 5 MG TABLET (FOR DETOX USE ONLY) PO ONE (10:00)
[2016-10-06] MEDS: VENLAFAXINE HCL 75 MG E.R. CAPSULES (FP) PO SCH (10:31)
[2016-10-06] MEDS: PRENATAL VITAMINS W/ FOLIC ACID TABLET (FP) PO SCH (10:31)
[2016-10-06] MEDS: diazePAM 5 MG TABLET PO PRN (10:31)
--- NOTE | 2016-10-06 11:02 | PN ---
BHS COWS - Scale Resting Pulse: 0= [place] 80 or Below Sweatin= Chills/Flushing Restless Observation: 1= Difficult to Sit Still Pupil Size: 1= Pupils >than Normal Bone or Joint Aches: 1= Mild Discomfort Runny Nose/ Eye Tearin= Nasal Congestion GI Upset > 30mins: 1= Stomach Cramp Tremor Observation of Outstretched Hands: 1= Tremor [place], Not Seen Yawning Observation: 0= None Anxiety or Irritability: 1=Feels Anxious/Irritable Goose Flesh Skin: 0=Smooth Skin COWS Score: 8 BHS Progress Note (SOAP) Subjective: interrupted sleep, mild sweats Objective: 10/06/16 11:00 Vital Signs Temperature 97.9 F 10/06/16 10:44 Pulse Rate 92 H 10/06/16 10:44 Respiratory Rate 20 10/06/16 10:44 Blood Pressure 127/80 10/06/16 10:44 O2 Sat by Pulse Oximetry (%) Laboratory Tests 10/04/16 10/04/16 10/05/16 13:50 18:00 06:00 WBC 5.6 RBC 4.64 Hgb 13.5 Hct 41.3 MCV 89.1 MCHC 32.6 RDW 14.0 D Plt Count 175 MPV 11.7 H D Sodium Potassium Chloride Carbon Dioxide Anion Gap BUN Creatinine Creat Clearance w eGFR POC Glucometer 235 Random Glucose Calcium Total Bilirubin AST ALT Alkaline Phosphatase Total Protein Albumin Urine Color Yellow Urine Appearance Clear Urine pH 5.0 Ur Specific [place] 1.010 Urine Protein Negative Urine Glucose (UA) 3+ H Urine Ketones Negative Urine Blood Negative Urine Nitrite Negative Urine Bilirubin Negative Urine Urobilinogen Negative Ur Leukocyte Esterase Negative RPR Titer 10/05/16 10/05/16 10/05/16 06:00 06:00 06:47 WBC RBC Hgb Hct MCV MCHC RDW Plt Count MPV Sodium 136 Potassium 4.4 Chloride 95 L Carbon Dioxide 30 Anion Gap 11 BUN 9 D Creatinine 0.7 Creat Clearance w eGFR > 60 POC Glucometer 210 Random Glucose 240 H D Calcium 9.2 Total Bilirubin 0.7 D AST 18 ALT 23 Alkaline Phosphatase 110 D Total Protein 7.7 Albumin 4.0 Urine Color Urine Appearance Urine pH Ur Specific [place] Urine Protein Urine Glucose (UA) Urine Ketones Urine Blood Urine Nitrite Urine Bilirubin Urine Urobilinogen Ur Leukocyte Esterase RPR Titer Nonreactive 10/05/16 10/06/16 16:48 06:33 WBC RBC Hgb Hct MCV MCHC RDW Plt Count MPV Sodium Potassium Chloride Carbon Dioxide Anion Gap BUN Creatinine Creat Clearance w eGFR POC Glucometer 148 205 Random Glucose Calcium Total Bilirubin AST ALT Alkaline Phosphatase Total Protein Albumin Urine Color Urine Appearance Urine pH Ur Specific [place] Urine Protein Urine Glucose (UA) Urine Ketones Urine Blood Urine Nitrite Urine Bilirubin Urine Urobilinogen Ur Leukocyte Esterase RPR Titer pt aox3 in nad lying in bed comfortably Assessment: 10/06/16 11:01 withdrawal sx's 10/06/16 11:02 dm Plan: cont. detox increase fluids bgm and adjust as indicated
[2016-10-06] MEDS: diphenhydrAMINE HCL 50 MG CAPSULE PO PRN (22:18)
[2016-10-06] MEDS: THIAMINE HCL 100 MG TABLET (FP) PO SCH (22:18)
[2016-10-07] MEDS: glipiZIDE 10 MG TABLET (FP) PO SCH (06:41)
--- NOTE | 2016-10-07 09:29 | PN ---
S Progress Note (SOAP) Subjective: ALERT,IRRITABLE,ANXIOUS,INTERRUPTED SLEEP,PAIN IN THE BODY AND BACK Objective: 10/07/16 09:27 Vital Signs Temperature 97.7 F 10/07/16 06:50 Pulse Rate 70 10/07/16 06:50 Respiratory Rate 16 10/07/16 06:50 Blood Pressure 101/52 10/07/16 06:50 O2 Sat by Pulse Oximetry (%) Assessment: 10/07/16 09:28 WITHDRAWAL SYMPTOM Plan: CONTINUE DETOX,MEDICATION ADJUSTED,DISCHARGE IN AM
[2016-10-07] MEDS ORDERED: METHADONE HCL 5 MG TABLET (FOR DETOX USE ONLY) PO ONE (10:00)
[2016-10-07] MEDS ORDERED: METHADONE HCL 10 MG TABLET (FOR DETOX USE ONLY) PO ONE (10:00)
[2016-10-07] MEDS: diazePAM 5 MG TABLET PO PRN (10:25)
[2016-10-07] MEDS: PRENATAL VITAMINS W/ FOLIC ACID TABLET (FP) PO SCH (10:25)
[2016-10-07] MEDS: VENLAFAXINE HCL 75 MG E.R. CAPSULES (FP) PO SCH (10:25)
[2016-10-07] MEDS: THIAMINE HCL 100 MG TABLET (FP) PO SCH (22:06)
[2016-10-07] MEDS: diphenhydrAMINE HCL 50 MG CAPSULE PO PRN (22:06)
[2016-10-08] MEDS ORDERED: METHADONE HCL 5 MG TABLET (FOR DETOX USE ONLY) PO ONE (06:00)
[2016-10-08 06:24] VITALS: TEMP 97.7
[2016-10-08] MEDS: glipiZIDE 10 MG TABLET (FP) PO SCH (06:31)
--- NOTE | 2016-10-08 08:24 | PN ---
S Progress Note (SOAP) Subjective: ALERT,NO COMPLAINT Objective: 10/08/16 08:22 Vital Signs Temperature 97.7 F 10/08/16 06:00 Pulse Rate 73 10/08/16 06:00 Respiratory Rate 18 10/08/16 06:00 Blood Pressure 96/68 10/08/16 06:00 O2 Sat by Pulse Oximetry (%) Assessment: 10/08/16 08:23 DETOX COMPLETED,NO WITHDRAWAL SYMPTOM Plan: DISCHARGE TODAY,FOLLOW UP WITH AFTER CARE PROGRAM ARRANGEMENT
--- NOTE | 2016-10-08 08:24 | DS ---
[facility] Detox Discharge Summary Admission Date: 10/04/16 Discharge Date: 10/08/16 - History Present History: Opioid Dependence Additional Comments: FOLLOW UP WITH AFTER [facility] PROGRAM ARRANGEMENT AND PMD FOR MEDICAL PROBLEM Pertinent Past History: TYPE 2 DM NICOTINE DEPENDENCE - Physical Exam Results Vital Signs: Vital Signs Temperature 97.7 F 10/08/16 06:00 Pulse Rate 73 10/08/16 06:00 Respiratory Rate 18 10/08/16 06:00 Blood Pressure 96/68 10/08/16 06:00 O2 Sat by Pulse Oximetry (%) Pertinent Admission Physical Exam Findings: WITHDRAWAL SYMPTOM - Treatment Hospital Course: Detox Protocol Followed, Detoxed Safely, Responded well, Discharged Condition Good Patient has Accepted a Rehab Referral to: [facility] - Medication Discharge Medications: Ambulatory Orders Glipizide [Glucotrol -] 10 mg PO DAILY 05/03/16 Venlafaxine HCl [Effexor -] 225 mg PO DAILY 07/22/16 - Diagnosis (1) Nicotine dependence Current Visit: Yes Status: Acute Qualifiers: Nicotine product type: cigarettes Substance use status: in withdrawal Qualified Code(s): F17.213 - Nicotine dependence, cigarettes, with withdrawal (2) Opioid dependence with withdrawal Current Visit: Yes Status: Acute (3) Post traumatic stress disorder (PTSD) Current Visit: Yes Status: Chronic (4) Type II diabetes mellitus Current Visit: Yes Status: Chronic Qualifiers: Diabetes mellitus complication status: without complication Diabetes mellitus half-way insulin use: with 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
[2016-10-08] MEDS: PRENATAL VITAMINS W/ FOLIC ACID TABLET (FP) PO SCH (09:29)
[2016-10-08] MEDS: VENLAFAXINE HCL 75 MG E.R. CAPSULES (FP) PO SCH (09:29)
[2016-10-08] MEDS ORDERED: METHADONE HCL 10 MG TABLET (FOR DETOX USE ONLY) PO ONE (10:00)
[2016-10-08 10:42] VITALS: BP 108/67; PULSE 96
[2016-10-09] MEDS ORDERED: METHADONE HCL 5 MG TABLET (FOR DETOX USE ONLY) PO ONE (06:00)
== END 2016-10-08 10:02 | disposition home or self-care (01) | DRG 773 ==
LOC: YASAS 12:54 → Y6N 14:44
PROVIDERS: ADMIT Internal Medicine Addiction Medicine; ATTEND Internal Medicine Addiction Medicine
PROC: HZ2ZZZZ Detoxification Services for Substance Abuse Treatment (ICD-10-PCS; principal; 2016-10-08)
DX: F11.23 Opioid dependence with withdrawal (principal); F17.213 Nicotine dependence, cigarettes, with withdrawal; F43.10 Post-traumatic stress disorder, unspecified; F19.24 Other psychoactive substance dependence with psychoactive substance-induced mood disorder; F32.9 Major depressive disorder, single episode, unspecified; E11.9 Type 2 diabetes mellitus without complications; Z79.84 Long term (current) use of oral hypoglycemic drugs
CPT/HCPCS: 36415; 80053; 81003; 85027; 86593; 93005; 93010

== ENCOUNTER 2016-11-04 11:00 | Inpatient (IN) | payer OTHER ==
[2016-11-04 11:49] VITALS: BMI 24.7
--- NOTE | 2016-11-04 14:24 | HP ---
COWS - Scale Resting Pulse: 2= [place] 101-120 Sweatin= Chills/Flushing Restless Observation: 3= Extraneous Movement Pupil Size: 2= Moderately Dilated Bone or Joint Aches: 4=Acute Joint/Muscle Pain Runny Nose/ Eye Tearin= Runny Nose/Eyes GI Upset > 30mins: 1= Stomach Cramp (AND NAUSEA) Tremor Observation: 1= Tremor [place], Not Seen Yawning Observation: 1= 1-2x During Session Anxiety or Irritability: 1=Feels Anxious/Irritable Goose Flesh Skin: 0=Smooth Skin COWS Score: 18 Admission ROS S - HPI Chief Complaint: DETOX TX FOR HEROIN DEPENDENCE Allergies/Adverse Reactions: Allergies Allergy/AdvReac Type Severity Reaction Status Date / Time No Known Allergies Allergy Verified 11/04/16 12:37 History of Present Illness: 26 Y/O FEMALE WITH A HX OF HEROIN DEPENDENCE SEEKING DETOX TX Exam Limitations: No Limitations - Ebola screening Have you traveled outside of the country in the last 21 days: No Have you had contact with anyone from an Ebola affected area: No Have you been sick,other than usual withdrawal symptoms: No Do you have a fever: No - Review of Systems Constitutional: Chills, Loss of Appetite, Night Sweats, Changes in sleep EENT: reports: Tearing, Nose Congestion Respiratory: reports: No Symptoms reported Cardiac: reports: No Symptoms Reported GI: reports: Constipated, Diarrhea, Nausea, Abdominal cramping : reports: Dysuria, Frequency Musculoskeletal: reports: Back Pain, Joint Pain, Muscle Pain Integumentary: reports: Bruising (IVD INJ SITES ON BOTH HANDS) Neuro: reports: Headache Endocrine: reports: Increased Urine Hematology: reports: Easy Bruising Psychiatric: reports: Orientated x3, Anxious, Depressed Other Systems: Reviewed and Negative Patient History - Patient Medical History Hx Anemia: No Hx Asthma: No Hx Chronic Obstructive Pulmonary Disease (COPD): No Hx Cancer: No Hx Cardiac Disorders: No Hx Congestive Heart Failure: No Hx Hypertension: No Hx Hypercholesterolemia: No Hx Pacemaker: No HX Cerebrovascular Accident: No Hx Seizures: No Hx Dementia: No Hx Diabetes: Yes (ON GLYPIZIDE) Hx Gastrointestinal Disorders: No Hx Liver Disease: No Hx Genitourinary Disorders: No Hx Sexually Transmitted Disorders: No (DENIES) Hx Renal Disease (ESRD): No Hx Thyroid Disease: No Hx Human Immunodeficiency Virus (HIV): No (Last Tested: 2015: NEGATIVE.) Hx Hepatitis C: No (NEGATIVE HX.) Hx Depression: Yes Hx Suicide Attempt: Yes (cut left wrist at age 13; DENIES CURRENT S/H IDEATIONS) Hx Bipolar Disorder: No Hx Schizophrenia: No - Patient Surgical History Past Surgical History: Yes Hx Neurologic Surgery: No Hx Cataract Extraction: No Hx Cardiac Surgery: No (REPAIR OF VSD AT AGE 4 YRS.) Hx Lung Surgery: No Hx Breast Surgery: No Hx Breast Biopsy: No Hx Abdominal Surgery: No Hx Appendectomy: No Hx Cholecystectomy: No Hx Genitourinary Surgery: No Hx Section: No Hx Orthopedic Surgery: No Hx Hysterectomy: No Anesthesia Reaction: No - PPD History Previous Implant?: Yes Documented Results: Negative w/proof Implanted On Prior [facility] Admission?: Yes Date: 07/27/16 Results: 0 mm PPD to be Administered?: No - Reproductive History Patient is a Female of Child Bearing Age (11 -55 yrs old): Yes Last Menstrual Period: 11/01/16 Patient : No - Smoking Cessation Smoking history: Current every day smoker Have you smoked in the past 12 months: Yes Aproximately how many cigarettes per day: 20 Cigars Per Day: 0 Hx Chewing Tobacco Use: No Initiated information on smoking cessation: Yes 'Breaking Loose' booklet given: 11/04/16 - Substance & Tx. History Hx Alcohol Use: No (DENIES) Hx Substance Use: Yes (HEROIN) Substance Use Type: Heroin Hx Substance Use Treatment: Yes (LAST DETOX TX AT [facility] ON 10/08/16; CURRENTLY AT [facility] ) - Substances Abused Heroin Route: Injection Frequency: Daily Amount used: 5-6 bags Age of first use: 18 Date of Last Use: 11/04/16 Family Disease History - Family Disease History Family Disease History: Heart Disease: Grandparent (Colon Ca; By-Pass Surgery.) , Father, Mother, [place]: Grandparent Admission Physical Exam BHS - Vital Signs Vital Signs: Vital Signs - 24 hr 11/04/16 11:43 Temperature 95.7 F L Pulse Rate 101 H Respiratory 18 Rate Blood Pressure 117/66 - Physical General Appearance: Yes: Mild Distress, Irritable, Anxious HEENTM: Yes: EOMI, Normocephalic, MARY, Pharynx Normal, Nasal Congestion, Rhinorrhea Respiratory: Yes: Chest Non-Tender, Lungs Clear, Normal Breath Sounds, No Respiratory Distress Neck: Yes: Supple, Trachea in good position Breast: Yes: Breast Exam Deferred Cardiology: Yes: Regular Rhythm, Regular Rate, S1, S2 Abdominal: Yes: Normal Bowel Sounds, Non Tender, Soft Genitourinary: Yes: Other (N/C) Back: Yes: Within Normal Limits Musculoskeletal: Yes: full range of Motion, Gait Steady Extremities: Yes: Normal Range of Motion, Non-Tender Neurological: 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: 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 intact, Fully Oriented, Alert, Motor Strength 5/5 Integumentary: Yes: Dry, Warm, Track [place] (ON HANDS-NO SWELLING/REDNESS NOTED.) Lymphatic: Yes: Within Normal Limits - Diagnostic (1) Anxious depression Current Visit: Yes Status: Chronic (2) Nicotine dependence Current Visit: Yes Status: Acute Qualifiers: Nicotine product type: cigarettes Substance use status: in withdrawal Qualified Code(s): F17.213 - Nicotine dependence, cigarettes, with withdrawal (3) Opioid dependence with withdrawal Current Visit: Yes Status: Acute (4) Type II diabetes mellitus Current Visit: Yes Status: Chronic Qualifiers: Diabetes mellitus complication status: without complication Diabetes mellitus chcf insulin use: with oysterman use Qualified Code(s): E11.9 - Type 2 diabetes mellitus without complications Cleared for Admission [facility] - Detox or Rehab [facility] Level of Care: Medically Managed Detox Regimen/Protocol: Methadone [facility] Breath Alcohol Content Breath Alcohol Content: 0 Urine Pregancy Test - Result Urine Test Results: Negative- NO Line Present Urine Drug Screen - Results Drug Screen Negative: No Urine Drug Screen Results: OPI-Opiates, AMP-Amphetamines, MET-Methamphetamine, MDMA-Ecstasy, BZO-Benzodiazepines
[2016-11-04] MEDS ORDERED: MENTHOL/PHENOL 1 EACH UD MM PRN (14:34)
[2016-11-04] MEDS ORDERED: guaiFENesin/D-METHORPHAN HB 10 ML UNIT-DOSE CUPS PO PRN (14:34)
[2016-11-04] MEDS ORDERED: MAG HYDROX/AL HYDROX/SIMETH 30 ML UNIT-DOSE CUP PO PRN (14:34)
[2016-11-04] MEDS ORDERED: NICOTINE POLACRILEX 4 MG GUM BUC PRN (14:34)
[2016-11-04] MEDS ORDERED: P-EPHED 60MG/TRIPROLIDI 2.5MG TABLET PO PRN (14:34)
[2016-11-04] MEDS ORDERED: IBUPROFEN 400 MG TABLET (FP) PO PRN (14:34)
[2016-11-04] MEDS ORDERED: LOPERAMIDE HCL 2 MG CAPSULE PO PRN (14:34)
[2016-11-04] MEDS ORDERED: MAGNESIUM CITRATE 300 ML BOTTLE PO PRN (14:34)
[2016-11-04] MEDS ORDERED: ACETAMINOPHEN 325 MG TABLET (FP) PO PRN (14:34)
[2016-11-04] MEDS ORDERED: MAGNESIUM HYDROX 2400MG/30ML ORAL SUSPENSION 30 ML CUP PO PRN (14:34)
[2016-11-04] MEDS ORDERED: glipiZIDE 10 MG TABLET (FP) PO ONE (14:39)
[2016-11-04] MEDS ORDERED: METHADONE HCL 10 MG TABLET (FOR DETOX USE ONLY) PO ONE ×2 (14:39→23:00)
[2016-11-04] MEDS ORDERED: glipiZIDE 10 MG TABLET (FP) PO SCH (14:45)
[2016-11-04] MEDS: diazePAM 5 MG TABLET PO PRN ×2 (15:42→23:01)
[2016-11-04] MEDS: NICOTINE 21 MG/24 HOURS TOPICAL PATCH TD SCH (15:43)
[2016-11-04 16:50] LABS: URINE APPEARANCE SLCLOUDY; URINE BILIRUBIN NEGATIVE (NEGATIVE); URINE BLOOD NEGATIVE (NEGATIVE); URINE COLOR DKYELLOW; URINE GLUCOSE (UA) NEGATIVE (NEGATIVE); URINE KETONE 1+ (NEGATIVE); URINE LEUK ESTERASE NEGATIVE (NEGATIVE); URINE NITRITE NEGATIVE (NEGATIVE); URINE PROTEIN NEGATIVE (NEGATIVE); URINE UROBILINOGEN NEGATIVE E.U./dl (0.2-1.0)
[2016-11-04] MEDS: THIAMINE HCL 100 MG TABLET (FP) PO SCH (22:55)
[2016-11-05] MEDS: glipiZIDE 10 MG TABLET (FP) PO SCH (09:30)
[2016-11-05 09:56] LABS: MCH 28.5 pg (25.7-33.7); MCHC 33.3 g/dl (32.0-36.0); MEAN CELL VOLUME 85.6 fl (80-96); PLATELET COUNT 216 K/MM3 (134-434); RDW 14.9 % (11.6-15.6); WHITE BLOOD COUNT 5.6 K/mm3 (4.0-10.0)
[2016-11-05] MEDS ORDERED: METHADONE HCL 10 MG TABLET (FOR DETOX USE ONLY) PO ONE (10:00)
--- NOTE | 2016-11-05 10:19 | EKG ---
Test Reason : Blood Pressure : / mmHG Vent. Rate : 093 BPM Atrial Rate : 093 BPM P-R Int : 188 ms QRS Dur : 120 ms QT Int : 402 ms P-R-T Axes : 042 -74 080 degrees QTc Int : 499 ms NORMAL SINUS RHYTHM LEFT AXIS DEVIATION RIGHT BUNDLE BRANCH BLOCK NONSPECIFIC ST ABNORMALITY ABNORMAL ECG Confirmed by RKISTAN SAMSON MD ([id number]) on 11/05/2016 10:19:05 AM Referred By: Confirmed By:KRISTAN SAMSON MD
[2016-11-05 10:20] LABS: ALBUMIN 4.4 g/dl (3.4-5.0); ALK PHOS 83 U/L (45-117); ANION GAP 10 (8-16); CALCIUM 10.1 mg/dL (8.5-10.1); CO2 27 mmol/L (21-32); COCKROFT - GAULT 115.6595; CREATININE 0.7 mg/dL (0.55-1.02); GLUCOSE,RANDOM 165 mg/dL (74-106); SGOT/AST 28 U/L (15-37); SGPT/ALT 25 U/L (12-78); TOT PROT 8.5 g/dl (6.4-8.2)
[2016-11-05] MEDS: PRENATAL VITAMINS W/ FOLIC ACID TABLET (FP) PO SCH (10:43)
[2016-11-05] MEDS: NICOTINE 21 MG/24 HOURS TOPICAL PATCH TD SCH (10:44)
[2016-11-05] MEDS: diazePAM 5 MG TABLET PO PRN ×2 (10:47→22:30)
--- NOTE | 2016-11-05 10:52 | PN ---
BHS COWS - Scale Resting Pulse: 1= [place] 81-100 Sweatin=Flushed/Facial Moisture Restless Observation: 3= Extraneous Movement Pupil Size: 1= Pupils >than Normal Bone or Joint Aches: 2= Severe Diffuse Aches Runny Nose/ Eye Tearin= Runny Nose/Eyes GI Upset > 30mins: 3= Vomiting/Diarrhea Tremor Observation of Outstretched Hands: 2= Slight Tremor Visible Yawning Observation: 1= 1-2x During Session Anxiety or Irritability: 2=Irritable/Anxious Goose Flesh Skin: 0=Smooth Skin COWS Score: 19 S Progress Note (SOAP) Subjective: ALERT,IRRITABLE,ANXIOUS,INTERRUPTED SLEEP,TREMOR,PAIN IN THE BODY AND BACK Objective: 11/05/16 10:49 Vital Signs Temperature 97.5 F L 11/05/16 10:05 Pulse Rate 96 H 11/05/16 10:05 Respiratory Rate 18 11/05/16 10:05 Blood Pressure 101/69 11/05/16 10:05 O2 Sat by Pulse Oximetry (%) EKG NSR RBBB NO CHEST PAIN,NO SOB,NO DIZZINESS Laboratory Last Values WBC 5.6 K/mm3 (4.0-10.0) 11/05/16 06:00 RBC 5.06 M/mm3 (3.60-5.2) 11/05/16 06:00 Hgb 14.4 GM/dL (10.7-15.3) 11/05/16 06:00 Hct 43.4 % (32.4-45.2) 11/05/16 06:00 MCV 85.6 fl (80-96) 11/05/16 06:00 MCHC 33.3 g/dl (32.0-36.0) 11/05/16 06:00 RDW 14.9 % (11.6-15.6) 11/05/16 06:00 Plt Count 216 K/MM3 (134-434) D 11/05/16 06:00 MPV 11.0 fl (7.5-11.1) 11/05/16 06:00 Sodium 135 mmol/L (136-145) L 11/05/16 06:00 Potassium 4.5 mmol/L (3.5-5.1) 11/05/16 06:00 Chloride 98 mmol/L (98-107) 11/05/16 06:00 Carbon Dioxide 27 mmol/L (21-32) 11/05/16 06:00 Anion Gap 10 (8-16) 11/05/16 06:00 BUN 9 mg/dL (7-18) 11/05/16 06:00 Creatinine 0.7 mg/dL (0.55-1.02) 11/05/16 06:00 Creat Clearance w eGFR > 60 (>60) 11/05/16 06:00 POC Glucometer 132 UNITS (()) 11/05/16 06:01 Random Glucose 165 mg/dL (74-106) H D 11/05/16 06:00 Calcium 10.1 mg/dL (8.5-10.1) 11/05/16 06:00 Total Bilirubin 1.0 mg/dL (0.2-1.0) D 11/05/16 06:00 AST 28 U/L (15-37) D 11/05/16 06:00 ALT 25 U/L (12-78) 11/05/16 06:00 Alkaline Phosphatase 83 U/L (45-117) D 11/05/16 06:00 Total Protein 8.5 g/dl (6.4-8.2) H 11/05/16 06:00 Albumin 4.4 g/dl (3.4-5.0) 11/05/16 06:00 Urine Color Dkyellow 11/04/16 14:50 Urine Appearance Slcloudy 11/04/16 14:50 Urine pH 5.0 (5.0-8.0) 11/04/16 14:50 Ur Specific [place] 1.025 (1.005-1.025) 11/04/16 14:50 Urine Protein Negative (NEGATIVE) 11/04/16 14:50 Urine Glucose (UA) Negative (NEGATIVE) 11/04/16 14:50 Urine Ketones 1+ (NEGATIVE) H 11/04/16 14:50 Urine Blood Negative (NEGATIVE) 11/04/16 14:50 Urine Nitrite Negative (NEGATIVE) 11/04/16 14:50 Urine Bilirubin Negative (NEGATIVE) 11/04/16 14:50 Urine Urobilinogen Negative E.U./dl (0.2-1.0) 11/04/16 14:50 Ur Leukocyte Esterase Negative (NEGATIVE) 11/04/16 14:50 LABS PENDING Assessment: 11/05/16 10:51 WITHDRAWAL SYMPTOM Plan: CONTINUE DETOX
--- NOTE | 2016-11-05 12:39 | CONSULT ---
[facility] Psychiatric Consult - Data Date of interview: 11/05/16 Admission source: [facility] Identifying data: Another admission to [facility] for this 26 y/o female seeking detox treatment for heroin dependence.Patient is single without children,domiciled,unemployed and supported by relatives. Substance Abuse History: - Smoking Cessation. Smoking history: Current every day smoker. Have you smoked in the past 12 months: Yes. Aproximately how many cigarettes per day: 20. Cigars Per Day: 0. Hx Chewing Tobacco Use: No. Initiated information on smoking cessation: Yes. 'Breaking Loose' booklet given : 11/04/16. - Substance & Tx. History. Hx Alcohol Use: No (DENIES). Hx Substance Use: Yes (HEROIN). Substance Use Type: Heroin. Hx Substance Use Treatment: Yes (LAST DETOX [place] AT [facility] ON 10/08/16; CURRENTLY AT [facility] ). - Substances Abused. Heroin. Route: Injection. Frequency: Daily. Amount used: 5-6 bags. Age of first use: 18. Date of Last Use: . Confirmed by patient. Medical History: Diabetes mellitus and history of heart surgery at age 4 ( correction of ventricular septal defect). Psychiatric History: Patient denies history of psychiatric hospitalizations.Diagnosed with MDD,Anxiety Disorder and PTSD.Still maintained on Effexor ER 225 mg/day.Self-report of adequate adherence to medications.Patient states that she took her medication prior to [facility] visit.Ms Mackay continues to have her psychiatric outpatient services at the [facility] in [facility].She denies history of suicide attempts. Physical/Sexual Abuse/Trauma History: No discussion (patient is reserved about this topic). Additional Comment: Urine Drug Screen Results: OPI-Opiates, AMP-Amphetamines, MET-Methamphetamine, MDMA-Ecstasy, BZO-Benzodiazepines.Noted. Mental Status Exam - Mental Status Exam Alert and Oriented to: Time, Place, Person Cognitive Function: Good Patient Appearance: Well Groomed Mood: Hopeful, Euthymic Affect: Appropriate, Normal Range Patient Behavior: Appropriate, Cooperative Speech Pattern: Clear Voice Loudness: Normal Thought Process: Goal Oriented Thought Disorder: Not Present Hallucinations: Denies Suicidal Ideation: Denies Homicidal Ideation: Denies Insight/Judgement: Poor Sleep: Fair Appetite: Good Muscle strength/Tone: Normal Gait/Station: Normal Psychiatric Findings - Problem List ([place] 1, 2,3) (1) Opioid dependence with withdrawal Current Visit: Yes Status: Acute (2) Amphetamine dependence Current Visit: Yes Status: Acute (3) Nicotine dependence Current Visit: Yes Status: Acute Qualifiers: Nicotine product type: cigarettes Substance use status: in withdrawal Qualified Code(s): F17.213 - Nicotine dependence, cigarettes, with withdrawal (4) Drug-induced mood disorder Current Visit: Yes Status: Acute (5) Post traumatic stress disorder (PTSD) Current Visit: No Status: Chronic Comment: Self-report. (6) Depressive disorder Current Visit: Yes Status: Acute (7) Type II diabetes mellitus Current Visit: Yes Status: Chronic Qualifiers: Diabetes mellitus complication status: without complication Diabetes mellitus jail insulin use: with jail use Qualified Code(s): E11.9 - Type 2 diabetes mellitus without complications - Initial Treatment Plan Initial Treatment Plan: Psychoeducation.Previous records are reviewed.Medication : effexor 225 mg po daily.Side effects/benefits are discussed with the patient.She agrees with this careplan.Observation.
[2016-11-05] MEDS: THIAMINE HCL 100 MG TABLET (FP) PO SCH (22:30)
[2016-11-05] MEDS: CYCLOBENZAPRINE HCL 10 MG TABLET (FP) PO PRN (22:31)
[2016-11-06] MEDS: diazePAM 5 MG TABLET PO PRN ×3 (05:20→22:34)
[2016-11-06] MEDS: glipiZIDE 10 MG TABLET (FP) PO SCH (07:55)
[2016-11-06] MEDS ORDERED: METHADONE HCL 5 MG TABLET (FOR DETOX USE ONLY) PO ONE (10:00)
[2016-11-06] MEDS: PRENATAL VITAMINS W/ FOLIC ACID TABLET (FP) PO SCH (10:53)
[2016-11-06] MEDS: NICOTINE 21 MG/24 HOURS TOPICAL PATCH TD SCH (10:53)
--- NOTE | 2016-11-06 12:05 | PN ---
BHS COWS - Scale Resting Pulse: 1= [place] 81-100 Sweatin= Chills/Flushing Restless Observation: 3= Extraneous Movement Pupil Size: 1= Pupils >than Normal Bone or Joint Aches: 2= Severe Diffuse Aches Runny Nose/ Eye Tearin= Runny Nose/Eyes GI Upset > 30mins: 2= Nausea/Diarrhea Tremor Observation of Outstretched Hands: 2= Slight Tremor Visible Yawning Observation: 1= 1-2x During Session Anxiety or Irritability: 2=Irritable/Anxious Goose Flesh Skin: 0=Smooth Skin COWS Score: 17 S Progress Note (SOAP) Subjective: ALERT,IRRITABLE,ANXIOUS INTERRUPTED SLEEP,PAIN IN THE BODY AND BACK Objective: 11/06/16 12:04 Vital Signs Temperature 96.4 F L 11/06/16 11:59 Pulse Rate 94 H 11/06/16 11:59 Respiratory Rate 18 11/06/16 11:59 Blood Pressure 110/64 11/06/16 11:59 O2 Sat by Pulse Oximetry (%) Laboratory Last Values WBC 5.6 K/mm3 (4.0-10.0) 11/05/16 06:00 RBC 5.06 M/mm3 (3.60-5.2) 11/05/16 06:00 Hgb 14.4 GM/dL (10.7-15.3) 11/05/16 06:00 Hct 43.4 % (32.4-45.2) 11/05/16 06:00 MCV 85.6 fl (80-96) 11/05/16 06:00 MCHC 33.3 g/dl (32.0-36.0) 11/05/16 06:00 RDW 14.9 % (11.6-15.6) 11/05/16 06:00 Plt Count 216 K/MM3 (134-434) D 11/05/16 06:00 MPV 11.0 fl (7.5-11.1) 11/05/16 06:00 Sodium 135 mmol/L (136-145) L 11/05/16 06:00 Potassium 4.5 mmol/L (3.5-5.1) 11/05/16 06:00 Chloride 98 mmol/L (98-107) 11/05/16 06:00 Carbon Dioxide 27 mmol/L (21-32) 11/05/16 06:00 Anion Gap 10 (8-16) 11/05/16 06:00 BUN 9 mg/dL (7-18) 11/05/16 06:00 Creatinine 0.7 mg/dL (0.55-1.02) 11/05/16 06:00 Creat Clearance w eGFR > 60 (>60) 11/05/16 06:00 POC Glucometer 119 UNITS (()) 11/06/16 05:19 Random Glucose 165 mg/dL (74-106) H D 11/05/16 06:00 Calcium 10.1 mg/dL (8.5-10.1) 11/05/16 06:00 Total Bilirubin 1.0 mg/dL (0.2-1.0) D 11/05/16 06:00 AST 28 U/L (15-37) D 11/05/16 06:00 ALT 25 U/L (12-78) 11/05/16 06:00 Alkaline Phosphatase 83 U/L (45-117) D 11/05/16 06:00 Total Protein 8.5 g/dl (6.4-8.2) H 11/05/16 06:00 Albumin 4.4 g/dl (3.4-5.0) 11/05/16 06:00 Urine Color Dkyellow 11/04/16 14:50 Urine Appearance Slcloudy 11/04/16 14:50 Urine pH 5.0 (5.0-8.0) 11/04/16 14:50 Ur Specific [place] 1.025 (1.005-1.025) 11/04/16 14:50 Urine Protein Negative (NEGATIVE) 11/04/16 14:50 Urine Glucose (UA) Negative (NEGATIVE) 11/04/16 14:50 Urine Ketones 1+ (NEGATIVE) H 11/04/16 14:50 Urine Blood Negative (NEGATIVE) 11/04/16 14:50 Urine Nitrite Negative (NEGATIVE) 11/04/16 14:50 Urine Bilirubin Negative (NEGATIVE) 11/04/16 14:50 Urine Urobilinogen Negative E.U./dl (0.2-1.0) 11/04/16 14:50 Ur Leukocyte Esterase Negative (NEGATIVE) 11/04/16 14:50 RPR Titer Nonreactive (NONREACTIVE) 11/05/16 06:00 Assessment: 11/06/16 12:05 WITHDRAWAL SYMPTOM Plan: CONTINUE DETOX
[2016-11-06] MEDS: VENLAFAXINE HCL 75 MG E.R. CAPSULES (FP) PO SCH (14:35)
[2016-11-06] MEDS: diphenhydrAMINE HCL 50 MG CAPSULE PO PRN (22:32)
[2016-11-06] MEDS: THIAMINE HCL 100 MG TABLET (FP) PO SCH (22:32)
[2016-11-07] MEDS ORDERED: METHADONE HCL 5 MG TABLET (FOR DETOX USE ONLY) PO ONE (10:00)
--- NOTE | 2016-11-07 10:10 | PN ---
BHS Progress Note (SOAP) Subjective: ALERT,IRRITABLE,ANXIOUS,INTERRUPTED SLEEP,TREMOR Objective: 11/07/16 10:09 Vital Signs Temperature 98.9 F 11/07/16 09:49 Pulse Rate 103 H 11/07/16 09:49 Respiratory Rate 16 11/07/16 09:49 Blood Pressure 108/66 11/07/16 09:49 O2 Sat by Pulse Oximetry (%) Assessment: 11/07/16 10:09 WITHDRAWAL SYMPTOM Plan: CONTINUE DETOX
[2016-11-07] MEDS: VENLAFAXINE HCL 75 MG E.R. CAPSULES (FP) PO SCH (10:40)
[2016-11-07] MEDS: PRENATAL VITAMINS W/ FOLIC ACID TABLET (FP) PO SCH (10:40)
[2016-11-07] MEDS: glipiZIDE 10 MG TABLET (FP) PO SCH (10:40)
[2016-11-07] MEDS: CYCLOBENZAPRINE HCL 10 MG TABLET (FP) PO PRN ×2 (10:40→22:19)
[2016-11-07] MEDS: diazePAM 5 MG TABLET PO PRN (10:41)
[2016-11-07] MEDS: NICOTINE 21 MG/24 HOURS TOPICAL PATCH TD SCH (10:41)
[2016-11-07] MEDS: diphenhydrAMINE HCL 50 MG CAPSULE PO PRN (22:18)
[2016-11-07] MEDS: THIAMINE HCL 100 MG TABLET (FP) PO SCH (22:18)
--- NOTE | 2016-11-08 09:20 | PN ---
S Progress Note (SOAP) Subjective: ALERT,IRRITABLE,INTERRUPTED SLEEP,ACHING PAIN Objective: 11/08/16 09:36 Vital Signs Temperature 97.0 F L 11/08/16 05:53 Pulse Rate 79 11/08/16 05:53 Respiratory Rate 18 11/08/16 05:53 Blood Pressure 103/57 11/08/16 05:53 O2 Sat by Pulse Oximetry (%) Assessment: 11/08/16 09:36 WITHDRAWAL SYMPTOM Plan: CONTINUE DETOX,DISCHARGE IN AM
[2016-11-08] MEDS ORDERED: METHADONE HCL 10 MG TABLET (FOR DETOX USE ONLY) PO ONE (10:00)
[2016-11-08] MEDS: VENLAFAXINE HCL 75 MG E.R. CAPSULES (FP) PO SCH (10:13)
[2016-11-08] MEDS: NICOTINE 21 MG/24 HOURS TOPICAL PATCH TD SCH (10:14)
[2016-11-08] MEDS: glipiZIDE 10 MG TABLET (FP) PO SCH (10:14)
[2016-11-08] MEDS: PRENATAL VITAMINS W/ FOLIC ACID TABLET (FP) PO SCH (10:14)
[2016-11-08] MEDS: CYCLOBENZAPRINE HCL 10 MG TABLET (FP) PO PRN (22:29)
[2016-11-08] MEDS: diphenhydrAMINE HCL 50 MG CAPSULE PO PRN (22:29)
[2016-11-08] MEDS: THIAMINE HCL 100 MG TABLET (FP) PO SCH (22:29)
[2016-11-09] MEDS ORDERED: METHADONE HCL 5 MG TABLET (FOR DETOX USE ONLY) PO ONE (06:00)
[2016-11-09 06:33] VITALS: TEMP 97.2
[2016-11-09] MEDS: glipiZIDE 10 MG TABLET (FP) PO SCH (07:03)
[2016-11-09] MEDS: VENLAFAXINE HCL 75 MG E.R. CAPSULES (FP) PO SCH (07:03)
--- NOTE | 2016-11-09 08:21 | PN ---
S Progress Note (SOAP) Subjective: ALERT,NO COMPLAINT Objective: 11/09/16 08:19 Vital Signs Temperature 97.2 F L 11/09/16 06:00 Pulse Rate 72 11/09/16 06:00 Respiratory Rate 18 11/09/16 06:00 Blood Pressure 104/63 11/09/16 06:00 O2 Sat by Pulse Oximetry (%) Assessment: 11/09/16 08:19 DETOX COMPLETED,NO WITHDRAWAL SYMPTOM Plan: DISCHARGE TODAY,FOLLOW UP WITH AFTER CARE PROGRAM ARRANGEMENT
--- NOTE | 2016-11-09 08:27 | DS ---
[facility] Detox Discharge Summary Admission Date: 11/04/16 Discharge Date: 11/09/16 - History Present History: Opioid Dependence Additional Comments: FOLLOW UP WITH AFTER [facility] PROGRAM ARRANGEMENT AND PMD FOR MEDICAL PROBLEM Pertinent Past History: TYPE2 DM NICOTINE DEPENDENCE ANXIETY AND DEPRESSION - Physical Exam Results Vital Signs: Vital Signs Temperature 97.2 F L 11/09/16 06:00 Pulse Rate 72 11/09/16 06:00 Respiratory Rate 18 11/09/16 06:00 Blood Pressure 104/63 11/09/16 06:00 O2 Sat by Pulse Oximetry (%) Pertinent Admission Physical Exam Findings: WITHDRAWAL SYMPTOM - Treatment Hospital Course: Detox Protocol Followed, Detoxed Safely, Responded well, Discharged Condition Good, Rehab Referral Accepted Patient has Accepted a Rehab Referral to: [facility] - Medication Discharge Medications: Ambulatory Orders Glipizide [Glucotrol -] 10 mg PO DAILY 05/03/16 Venlafaxine HCl [Effexor -] 225 mg PO DAILY 07/22/16 Venlafaxine HCl ER [Effexor Xr -] 225 mg PO DAILY #30 cap.er.24h 11/05/16 Venlafaxine HCl ER [Effexor Xr -] 225 mg PO DAILY #30 cap.er.24h 11/05/16 - AMA Did Patient Leave Against Medical Advice: No
[2016-11-09 09:37] VITALS: BP 115/67; PULSE 93
== END 2016-11-09 09:41 | disposition home or self-care (01) | DRG 773 ==
LOC: YASAS 11:00 → Y6N 13:53
PROVIDERS: ADMIT Internal Medicine; ATTEND Internal Medicine
PROC: HZ2ZZZZ Detoxification Services for Substance Abuse Treatment (ICD-10-PCS; principal; 2016-11-04)
DX: F11.23 Opioid dependence with withdrawal (principal); F17.213 Nicotine dependence, cigarettes, with withdrawal; F41.9 Anxiety disorder, unspecified; F19.24 Other psychoactive substance dependence with psychoactive substance-induced mood disorder; F43.10 Post-traumatic stress disorder, unspecified; E11.9 Type 2 diabetes mellitus without complications; I45.10 Unspecified right bundle-branch block; Z79.84 Long term (current) use of oral hypoglycemic drugs; Z91.5 Personal history of self-harm
CPT/HCPCS: 36415; 80053; 81003; 85027; 86593; 93005; 93010

== ENCOUNTER 2018-12-14 11:37 | Inpatient (IN) | payer MEDICARE ==
[2018-12-14 12:32] VITALS: BMI 18.3
--- NOTE | 2018-12-14 16:00 | HP ---
Addendum entered and electronically signed by Beronica Rhodes, RESIDENT 12/14/18 18 :56: Patient tested negative for opiates on toxicology. Does not meet criteria for detox. Original Note: <Beronica Rhodes - Last Filed: 12/14/18 16:26> COWS - Scale Resting Pulse: 1= [place] 81-100 Sweatin= Chills/Flushing Restless Observation: 1= Difficult to Sit Still Pupil Size: 0= Normal to Room Light Bone or Joint Aches: 2= Severe Diffuse Aches Runny Nose/ Eye Tearin= None GI Upset > 30mins: 1= Stomach Cramp Tremor Observation: 0= None Yawning Observation: 1= 1-2x During Session Anxiety or Irritability: 1=Feels Anxious/Irritable Goose Flesh Skin: 0=Smooth Skin COWS Score: 8 CIWA Score - Admission Criteria OASAS Guidelines: Admission for Medically Managed Detox: Requires at least one of the followin. CIWA greater than 12 2. Seizures within the past 24 hours 3. Delirium tremens within the past 24 hours 4. Hallucinations within the past 24 hours 5. Acute intervention needed for co occurring medical disorder 6. Acute intervention needed for co occurring psychiatric disorder 7. Severe withdrawal that cannot be handled at a lower level of care (continued vomiting, continued diarrhea, abnormal vital signs) requiring intravenous medication and/or fluids 8. Admission ROS [facility] Chief Complaint: 28 y/o F with PMH multiple VSD, NIDDM ( on januvia, glipizide), depression, anxiety, PTSD, borderline personality disorder who presents for detox from heroin and cocaine. Allergies/Adverse Reactions: Allergies Allergy/AdvReac Type Severity Reaction Status Date / Time No Known Allergies Allergy Verified 12/14/18 12:25 History of Present Illness: 28 y/o F with PMH multiple VSD w closure, type 2 DM (NIDDM; on januvia and glipizide), depression, anxiety, PTSD, borderline personality, who presents for detox from heroin and cocaine. Last used heroin yesterday ; 1 bag worth. Uses via IVDA b/ l UE. Has had cellulitis in the past. Uses daily 1-2 bags. Longest sobriety 2 yrs. Was on vivatrol, and in a program. States that she relapsed with heroin because she started using it again simultaneously with the cocaine. OD 1-2 months ago, however did not receive narcan. Started at age 17. Has never been in a methadone program, however was on suboxone previously and did not like the experience. States her last use of cocaine was 2 days ago, 1 bag worth via IVDA ($20). Uses 1 bag per week. Started at age 17. Has had seizures in past from cocaine use. Longest sobriety 2 yrs. Also uses marijuana, smokes 1 blunt every other day. Was in [facility] detox 2017. Has also been to rehab in past here, and at [facility]. Hopes to do rehab after detox and may want to get her [place] license. PMH: as above PsxH: as above; VSD closure meds: januvia, glipizide, prozac, lamictal allergies: NKDA FH: denies SH: lives with family. they are supportive. denies smoking; quit. 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 heroin and cocaine use as above, as well as marijuana. denies other drugs. - Ebola screening Have you traveled outside of the country in the last 21 days: No Have you had contact with anyone from an Ebola affected area: No Have you been sick,other than usual withdrawal symptoms: No Do you have a fever: No - Review of Systems Constitutional: Chills, Diaphoresis, Loss of Appetite, Unintentional Wgt. Loss EENT: reports: No Symptoms Reported Respiratory: reports: No Symptoms reported Cardiac: reports: No Symptoms Reported GI: reports: Nausea : reports: No Symptoms Reported Musculoskeletal: reports: Back Pain, Joint Pain Integumentary: reports: No Symptoms Reported Neuro: reports: Headache, Weakness Endocrine: reports: No Symptoms Reported Hematology: reports: No Symptoms Reported Psychiatric: reports: Orientated x3 Patient History - Patient Medical History Hx Anemia: No Hx Asthma: No Hx Chronic Obstructive Pulmonary Disease (COPD): No Hx Cancer: No Hx Cardiac Disorders: No Hx Congestive Heart Failure: No Hx Hypertension: No Hx Hypercholesterolemia: No Hx Pacemaker: No HX Cerebrovascular Accident: No Hx Seizures: No Hx Dementia: No Hx Diabetes: Yes (glipizide, januvia ) Hx Gastrointestinal Disorders: No Hx Liver Disease: No Hx Genitourinary Disorders: No Hx Sexually Transmitted Disorders: No (DENIES) Hx Renal Disease (ESRD): No Hx Thyroid Disease: No Hx Human Immunodeficiency Virus (HIV): No (Last Tested: 2015: NEGATIVE.) Hx Hepatitis C: No (NEGATIVE HX.) Hx Depression: Yes Hx Suicide Attempt: Yes (cut left wrist at age 13; DENIES CURRENT S/H IDEATIONS) Hx Bipolar Disorder: No Hx Schizophrenia: No Other Medical History: PTSD, borderline personality, depression, multiple vsd closure - Patient Surgical History Past Surgical History: Yes Hx Neurologic Surgery: No Hx Cataract Extraction: No Hx Cardiac Surgery: No (REPAIR OF VSD AT AGE 4 YRS.) Hx Lung Surgery: No Hx Breast Surgery: No Hx Breast Biopsy: No Hx Abdominal Surgery: No Hx Appendectomy: No Hx Cholecystectomy: No Hx Genitourinary Surgery: No Hx Section: No Hx Orthopedic Surgery: No Hx Hysterectomy: No Anesthesia Reaction: No - PPD History Documented Results: Negative w/o proof Date: 07/27/16 Results: 0 mm PPD to be Administered?: Yes - Reproductive History Patient is a Female of Child Bearing Age (11 -55 yrs old): Yes Last Menstrual Period: 12/08/18 Patient : No - Smoking Cessation Smoking history: Current every day smoker Have you smoked in the past 12 months: No Cigars Per Day: 0 Hx Chewing Tobacco Use: No Initiated information on smoking cessation: No - Substance & Tx. History Hx Alcohol Use: No Substance Use Type: Cocaine, Heroin, Marijuana Hx Substance Use Treatment: Yes ([facility] 2018) - Substances abused Cocaine Substance route: Injection Frequency: Daily Amount used: 100 Age of first use: 17 Date of last use: 12/13/18 Heroin Substance route: Injection Frequency: Daily Amount used: 4bags Age of first use: 17 Date of last use: 12/13/18 Marijuana/Hashish Substance route: Smoking Frequency: 3-6 times per week Amount used: 1 blunt Family Disease History - Family Disease History Family Disease History: Heart Disease: Grandparent (Colon Ca; By-Pass Surgery.) , Father, Mother, [place]: Grandparent Admission Physical Exam BHS - Vital Signs Vital Signs: Vital Signs - 24 hr 12/14/18 12:20 Temperature 98.3 F Pulse Rate 83 Respiratory 18 Rate Blood Pressure 111/67 - Physical General Appearance: Yes: Within Normal Limits HEENTM: Yes: Normal ENT Inspection Respiratory: Yes: Lungs Clear Neck: Yes: Supple Breast: Yes: Breast Exam Deferred Cardiology: Yes: Regular Rhythm, Regular Rate, S1, S2 Abdominal: Yes: Soft Genitourinary: Yes: Within Normal Limits Back: Yes: Within Normal Limits Musculoskeletal: Yes: Within Normal Limits Extremities: Yes: Other (+ track frye UE) Neurological: Yes: Within Normal Limits, executive advisor II-XII NML intact Integumentary: Yes: Within Normal Limits Lymphatic: Yes: Within Normal Limits - Diagnostic (1) Cannabis abuse Status: Chronic (2) Depressive disorder Status: Chronic (3) Nicotine dependence Status: Chronic Qualifiers: Nicotine product type: cigarettes Substance use status: in withdrawal Qualified Code(s): F17.213 - Nicotine dependence, cigarettes, with withdrawal (4) Opioid dependence with withdrawal Status: Chronic (5) Nun-hfelbgn-evmnpruvy diabetes mellitus without complications Status: Chronic Qualifiers: Diabetes mellitus nursing home insulin use: without nursing home use Qualified Code(s): E11.9 - Type 2 diabetes mellitus without complications (6) Post traumatic stress disorder (PTSD) Status: Chronic Comment: Self-report. (7) IVDU (intravenous drug user) Status: Chronic Cleared for Admission S - Detox or Rehab [facility] Level of Care: Medically Managed Detox Regimen/Protocol: Methadone Breathalyzer - Breathalyzer Breathalyzer: 0 Urine Drug Screen - Test Device Lot number: [id number] Expiration date: 09/26/20 - Control Is test valid?: Yes - Results Drug screen NEGATIVE: No Urine drug screen results: THC-Marijuana, ANNAMARIA-Cocaine Inpatient Rehab Admission - Rehab Decision to Admit Inpatient rehab admission?: No <Kwan Bernal - Last Filed: 12/17/18 09:12> CIWA Score - Admission Criteria OASAS Guidelines: Admission for Medically Managed Detox: Requires at least one of the followin. CIWA greater than 12 2. Seizures within the past 24 hours 3. Delirium tremens within the past 24 hours 4. Hallucinations within the past 24 hours 5. Acute intervention needed for co occurring medical disorder 6. Acute intervention needed for co occurring psychiatric disorder 7. Severe withdrawal that cannot be handled at a lower level of care (continued vomiting, continued diarrhea, abnormal vital signs) requiring intravenous medication and/or fluids 8. Cleared for Admission S - Detox or Rehab Detox Regimen/Protocol: Not Applicable (pt met criteria for rehab, no beds yet still triaged and presented. pt was offered on bord until available bed yet refused and departed ama)
[2018-12-14] MEDS ORDERED: cloNIDine HCL 0.1 MG TABLET PO PRN (16:12)
[2018-12-14] MEDS ORDERED: MAGNESIUM HYDROX 2400MG/30ML ORAL SUSPENSION 30 ML CUP PO PRN (16:13)
[2018-12-14] MEDS ORDERED: ACETAMINOPHEN 325 MG TABLET (FP) PO PRN (16:13)
[2018-12-14] MEDS ORDERED: hydrOXYzine HCL 25 MG TABLET (FP) PO PRN (16:13)
[2018-12-14] MEDS ORDERED: IBUPROFEN 400 MG TABLET (FP) PO PRN (16:13)
[2018-12-14] MEDS ORDERED: MAG HYDROX/AL HYDROX/SIMETH 30 ML UNIT-DOSE CUP PO PRN (16:13)
[2018-12-14] MEDS ORDERED: MELATONIN 5 MG TABLETS PO PRN (16:13)
[2018-12-14] MEDS ORDERED: MENTHOL/PHENOL 1 EACH UD MM PRN (16:13)
[2018-12-14] MEDS ORDERED: BISMUTH SUBSALICYLATE 524 MG/30 ML UD PO PRN (16:13)
[2018-12-14] MEDS ORDERED: INSULIN SLIDING SCALE (NOVOLOG) 1 VIAL SQ SCH (16:30)
--- NOTE | 2018-12-14 16:32 | PN ---
Teaching Attending Note Name of Resident: Beronica Rhodes ATTENDING PHYSICIAN STATEMENT I saw and evaluated the patient. I reviewed the resident's note and discussed the case with the resident. I agree with the resident's findings and plan as documented. SUBJECTIVE: OPIATE DEP OBJECTIVE: WITHDRAWAL ASSESSMENT AND PLAN: ADMIT AND DETOX
[2018-12-14] MEDS ORDERED: glipiZIDE-XL 5 MG TAB.ER.24 PO SCH (17:30)
[2018-12-14] MEDS ORDERED: METHADONE HCL 10 MG TABLET (FOR DETOX USE ONLY) PO ONE (18:00)
[2018-12-14 18:40] VITALS: BP 114/74; PULSE 79; TEMP 97.6
[2018-12-14] MEDS ORDERED: THIAMINE HCL 100 MG TABLET (FP) PO SCH (22:00)
[2018-12-15] MEDS ORDERED: PRENATAL VITAMINS W/ FOLIC ACID TABLET (FP) PO SCH (10:00)
[2018-12-15] MEDS ORDERED: METHADONE HCL 5 MG TABLET (FOR DETOX USE ONLY) PO ONE (10:00)
--- NOTE | 2018-12-15 12:37 | EKG ---
Test Reason : Blood Pressure : / mmHG Vent. Rate : 068 BPM Atrial Rate : 068 BPM P-R Int : 196 ms QRS Dur : 126 ms QT Int : 446 ms P-R-T Axes : 041 -77 088 degrees QTc Int : 474 ms NORMAL SINUS RHYTHM BIATRIAL ENLARGEMENT LEFT AXIS DEVIATION RIGHT BUNDLE BRANCH BLOCK T WAVE ABNORMALITY, CONSIDER LATERAL ISCHEMIA ABNORMAL ECG WHEN COMPARED WITH ECG OF 04-NOV-2016 14:46, NO SIGNIFICANT CHANGE WAS FOUND Confirmed by KIRSTAN SAMSON MD ([id number]) on 12/15/2018 12:36:56 PM Referred By: GILL RINALDI Confirmed By:KRISTAN SAMSON MD
[2018-12-16] MEDS ORDERED: METHADONE HCL 10 MG TABLET (FOR DETOX USE ONLY) PO ONE (10:00)
[2018-12-17] MEDS ORDERED: METHADONE HCL 5 MG TABLET (FOR DETOX USE ONLY) PO ONE (06:00)
== END 2018-12-14 19:40 | disposition left against medical advice (07) | DRG 770 ==
LOC: YASAS 11:37 → Y3N 17:17
PROVIDERS: ADMIT Surgery; ATTEND Surgery
PROC: HZ2ZZZZ Detoxification Services for Substance Abuse Treatment (ICD-10-PCS; principal; 2018-12-14)
DX: F14.20 Cocaine dependence, uncomplicated (principal); F12.20 Cannabis dependence, uncomplicated; F17.210 Nicotine dependence, cigarettes, uncomplicated; F41.9 Anxiety disorder, unspecified; F32.9 Major depressive disorder, single episode, unspecified; F90.9 Attention-deficit hyperactivity disorder, unspecified type; F60.9 Personality disorder, unspecified; E11.9 Type 2 diabetes mellitus without complications; Z79.84 Long term (current) use of oral hypoglycemic drugs; Z86.59 Personal history of other mental and behavioral disorders; Z91.5 Personal history of self-harm
CPT/HCPCS: 81025; 82962; 93005; 93010